=== PATIENT | female | born 1995 | race Caucasian/White ===

== ENCOUNTER → 2017-01-17 | Outpatient (CLI) | payer OTHER | END | disposition home or self-care (01) | LOC: C.LAB 02:20 | DX: Z02.83 Encounter for blood-alcohol and blood-drug test (principal) ==

== ENCOUNTER 2023-10-21 07:48 | Inpatient (IN) ==
--- OUTSIDE RECORDS SUMMARY | 2023-10-21 08:19 | External Medical Summary | Summary of Care ---
Author Name Unknown Organization [facility] Address [address] [address] Phone [phone] Care Team Providers Care Batter Mixer Helper Name Role Phone Unavailable Primary Care Provider Unavailabl e Reason for Visit * Reason Comments Outpatient Testing Encounter Details Date Type Department Care Team (Late st Contact Info) Description 10/18/2023 9:40 AM EDT Laboratory Laboratory, [facility] [address] [id number] [facility] [address] [place] [address] Arrived Allergies Active Allergy Reactions Criticality Noted Date Comments Chocolate Hives 01/03/2021 Diclofenac Hives Low 11/14/2020 Ibuprofen Hives 01/03/2021 Penicillins 10/20/2001 rash documented as of this encounter (statuses as of 10/18/2023) Medications Medication Sig Dispensed Refills Start Date End Date Status Plus 27-1 MG Oral TabletIndications:En counter for supervision of normal first in second trimester Take 1 Tablet by mouth in the morning. 100 Tablet 3 06/02/2023 Active Breast Pump Dispense double electric breast pump. Dx:Z39.1 1 Each 08/22/2023 Active documented as of this encounter (statuses as of 10/18/2023) Active Problems Problem Noted Date Diagnosed Date GBS (group B Streptococcus c stacey), +RV culture, currently 10/17/2023 Gestational HTN, third trimester 10/16/2023 Health counseling 06/27/2023 Overview: Problem Action Taken Date entered Entered by Date resolved First pNC info given Birthly info given. 06/27/2023 Tarsha Adamson RN 06/27/2023 nutrition Plans to attend [facility]IC 06/27/2023 Tarsha Adamson RN 06/27/2023 Problem Action Taken Date entered Entered by Date resolved Current needs or questions Patient denies having any current needs or questions 07/25/2023 Maria Guadalupe Patterson RN 07/25/2023 Problem Action Taken Date entered Entered by Date resolved Current needs or questions Patient denies having any current needs or questions 09/08/2023 Maria Guadalupe Patterson RN 09/08/2023 Problem Action Taken Date entered Entered by Date resolved Current needs or questions Patient denies having any current needs or questions 09/25/2023 Tarsha Adamson RN 09/25/2023 Problem Action Taken Date entered Entered by Date resolved Current needs or questions Having discomfort - comfort measures discussed. Patient denies having any current needs or questions 10/10/2023 Tarsha Adamson RN 10/10/2023 Problem Action Taken Date entered Entered by Date resolved Current needs or questions Patient denies having any current needs or questions 10/15/2023 Maria Guadalupe Patterson RN 10/15/2023 Rh negative status during 04/07/2023 Rubella non-immune status, antepartum 04/07/2023 Overview: MMR vaccination Normal , first 04/04/2023 Obesity (BMI 30-39.9) 04/04/2023 Overview: Pregravid BMI 30.46. Early glucola advised. Estimated Date of Delivery Comme nts Yes 11/10/2023 Based on last me nstrual period of 02/03/2023 (Exact Date) documented as of this encounter (statuses as of 10/18/2023) Immunizations No known immunizationsdocumented as of this encounter Social History Tobacco Use Types Packs/Day Years Used Date Smoking Tobacco: Never Smokeless Tobacco: Never Comments:No passive smoke ex posures Alcohol Use Standard Drinks/Week Comments Not Currently 0 (1 standard drink = 0.6 oz pur e alcohol) 15 drinks a weekend PHQ-2 Answer Date Recorded PHQ-2 Score 3 11/25/2019 Hunger Vital Sign Answer Date Recorded Within the past 12 months, y ou worried that your food would run out before you got the money to buy more. Never true 06/14/19 24 Within the past 12 months, t he food you bought just didn't last and you didn't have money to get more. Never true 06/14/2023 Holcomb Depression Scale Answer Date Recorded Holcomb Depression Scale Total 7 09/25/2023 The thought of harming myself has occurred to me . Never 09/25/2023 Childcare Answer Date Recorded Do you feel overwhelmed with taking care of a child, family member or friend? No 06/14/2023 Does your family need help f inding childcare? (Household - for ages 0-17 years) Not on file 06/14/2023 Clothing Answer Date Recorded Have you been unable to get clothing when it was really needed? No 06/14/2023 Is your family able to get c lothes or diapers when needed? (Household - for ages 0-17 years) Not on file 06/14/2023 Personal Safety Answer Date Recorded Do you feel unsafe or have concerns for your saf ety? No 06/14/2023 Do you have concerns for you r family's safety? (Household - for ages 0-17 years) Not on file 06/14/2023 Utilities Answer Date Recorded Do you have trouble paying y our heating, water, or electric bill? No 06/14/2023 Is your family able to pay t he heat, water, or electric bill? (Household - for ages 0-17 years) Not on file 06/14/2023 Does your family have access to good internet? (Household - for ages 0-17 years) Not on file 06/14/2023 Employment Status Answer Date Recorded Are you unemployed or without regular income? No 06/14/2023 Does the household have a re gular source of income? (Household - for ages 0-17 years) Not on file 06/14/2023 Social Connections Answer Date Recorded How often do you feel lonely or isolated from th ose around you? Never 06/14/2023 Financial Resource Strain Answer Date R ecorded Do you have any trouble payi ng for your medications, or do you think you might in the future? No 06/14/2023 Does your family have troubl e paying for medicine? (Household - for ages 0-17 years) Not on file 06/14/2023 Transportation Needs Answer Date Record ed READ ONLY Do you have troubl e getting a ride to medical visits or work? Never True 06/14/2023 Does your family have a hard time getting a ride to doctors visits? (Household - for ages 0-17 years) Not on file 06/14/2023 Has lack of transportation k ept you from medical appointments, meetings, work, or from getting things needed for daily living? Check all that apply. (Adult - for ages 18 years and over) Not on file 06/14/2023 Do you (or your family) have trouble finding or paying for a ride (transportation)? (Household - for ages 0-17 years) Not on file 06/14/2023 Housing Stability Answer Date Recorded Do you currently live in a s helter or have no steady place to sleep at night? No 06/14/2023 READ ONLY Do you think you a re at risk of becoming homeless? No 06/14/2023 Does your family worry about paying for your home or becoming homeless? (Household - for ages 0-17 years) Not on file 0 06/14/2023 Are you homeless or worried that you might be in the future? (Adult - for ages 18 years and over) Not on file Are you (or your family) kt eless or worried that you might be in the future? (Household - for ages 0-17 years) Not on file Food Insecurity Answer Date Recorded Do you need food for this week? No 06/14/2023 Are you able to get enough f ood for your family? (Household - for ages 0-17 years) Not on file 06/14/2023 Does your family need food t his week? (Household - for ages 0-17 years) Not on file 06/14/2023 Do you always have enough fo od for your family? (Household - for ages 0-17 years) Not on file 06/14/2023 Estimated Date of Delivery Comme nts Yes 11/10/2023 Based on last me nstrual period of 02/03/2023 (Exact Date) Sex and Gender Information Value Date Recorded Sex Assigned at Female 10/01/2022 4:39 PM EDT Gender Identity Female 10/01/2022 4:39 PM EDT Sexual Orientation Straight 10/01/2022 4: 39 PM EDT Job Start Date Occupation Industry Not on file Not on file Not on file documented as of this encounter Plan of Treatment Health Maintenance Due Date Last Done Comments DTaP,Tdap,and Td Vaccines (6 - Tdap) 2006 05/10/1999, 11/05/1996, 1995, Additional history exists Depression Screening 11/22/2020 11/23/2019 COVID-19 Vaccine ( season) 2022 Influenza Vaccine (FLU shot) (Season Ended) 2023 GFR 10/15/2024 10/16/2023, 09/26, 08/22/2023, Additional history exists Pap Smear 04/04/2026 04/04/2023, 11/26, 06/18/2017 Hepatitis B Completed 1995, 05/29, 1995 Gonorrhea / Chlamydia Screen Discontinued 04/04/2023 GARDASIL-HPV IMMUNIZATION SERIES Aged Out No longer eligible based on patient's age to complete this topic MENINGOCOCCAL (MENACTRA/MENVEO) Aged Out No longer eligible based on patient's age to complete this topic Pneumococcal Vaccine: Pediatrics (0 to 5 Years) and At-Risk Patients (6 to 64 Years) Aged Out No longer eligible based on patient's age to complete this topic documented as of this encounter Medical Devices Not on filedocumented as of this encounter
--- OUTSIDE RECORDS SUMMARY | 2023-10-21 08:19 | External Medical Summary ---
Author Name Unknown Address Unknown Organization [id number][place] [place] [address] [facility] [address] Laboratory Report Ordering Provider Test Date Status JANET MEZA 10/18/2023 08:56:43 Final Observation Date Value Abnormality Reference (Units ) Status Creatinine [Moles/volume] in 24 hour Urine 10/18/2023 08:56:43 58 (mg/dL) Final Urine Volume 10/18/2023 08:56:43 2100 (mL) Final Creatinine [Moles/volume] in 24 hour Urine 10/18/2023 08:56:43 1.218 0.800-1.800 (g/24 hours) Final Performing Location [facility] [place] [address] [place] [id number]
--- OUTSIDE RECORDS SUMMARY | 2023-10-21 08:19 | External Medical Summary ---
Author Name Unknown Address Unknown Organization [id number][facility] [address] [place] [id number] Laboratory Report Ordering Provider Test Date Status JANET MEZA 10/16/2023 14:57:44 Final Observation Date Value Abnormality Reference (Units ) Status Platelets 10/16/2023 14:57:44 237 140-400 (K /uL) Final Performing Location [facility] - [address] [place] [id number]
--- OUTSIDE RECORDS SUMMARY | 2023-10-21 08:19 | External Medical Summary | Summary of Care ---
Author Name Unknown Organization [facility] Address [address] [facility] [place] [address] Phone [phone] Care Team Providers Care Pit Steward Name Role Phone Unavailable Primary Care Provider Unavailabl e Reason for Visit * Reason Comments Return Visit Encounter Details Date Type Department Care Team (Late st Contact Info) Description 10/20/2023 3:15 PM EDT Office Visit Gynecology/[facility] [address] [facility] [place] [address] Hallie Vora, HANK [address] [facility] [place] [address] Supervision of high-risk , third trimester*; Obesity (BMI 30-39.9); Rh negative, antepartum; Rubella non-immune status, antepartum; Health counseling; Gestational HTN, third trimester; GBS (group B Streptococcus carrier), +RV culture, currently Allergies Active Allergy Reactions Criticality Noted Date Comments Chocolate Hives 01/03/2021 Diclofenac Hives Low 11/14/2020 Ibuprofen Hives 01/03/2021 Penicillins 10/20/2001 rash documented as of this encounter (statuses as of 10/20/2023) Medications Medication Sig Dispensed Refills Start Date End Date Status Plus 27-1 MG Oral TabletIndications:En counter for supervision of normal first in second trimester Take 1 Tablet by mouth in the morning. 100 Tablet 3 06/02/2023 Active Breast Pump Dispense double electric breast pump. Dx:Z39.1 1 Each 08/22/2023 Active documented as of this encounter (statuses as of 10/20/2023) Active Problems Problem Noted Date Diagnosed Date GBS (group B Streptococcus c arrier), +RV culture, currently 10/17/2023 Gestational HTN, third [...] as of this encounter (statuses as of 10/20/2023) Immunizations No known immunizationsdocumented as of this [...] money to get more. Never true 06/14/2023 Huron Depression Scale Answer Date Recorded Huron Depression Scale Total 7 09/25/2023 The thought [...] on file documented as of this encounter Last Filed Vital Signs Vital Sign Reading Time Taken Comments Blood Pressure 132/90 10/20/2023 2:56 PM EDT Pulse - - Temperature - - Respiratory Rate - - Oxygen Saturation - - Inhaled Oxygen Concentration - - Weight 108 kg (238 lb) 10/20/2023 2:56 PM EDT Height - - Body Mass Index 38.41 09/08/2023 9:12 AM EDT documented in this encounter Progress Notes * Hallie Vora CNM - 10/20/2023 3:16 PM EDT Kathy Berry is a 28 year old female here for her routine OB appointment at 37w0d Her Estimated Date of Delivery: 11/10/23 REVIEW OF SYSTEMS: She affirms movement. Denies vaginal bleeding, LOF, contractions, N/V Headaches for a few days, denies RUQ pain PHYSICAL EXAM: Filed Vitals: 10/20/23 1456 BP: 132/90 Weight: 108 kg (238 lb) ASSESSMENT assessment with Non-stress Test completed on 10/20/2023 at 37weeks gestation for indication ofdecreased movement heart baseline: 130 bpm Variability: Moderate Decelerations: absent Accelerations: present Contractions: Present x1 NST start time: 1515 NST stop time: 1538 NST strip reviewed, interpreted, and approved by OB provider, Laura Vora CNM. NST strip stored in clinic storage file Hallie Vora CNM 10/20/2023 3:47 PM ASSESSMENT/PLAN: 1. Obesity (BMI 30-39.9) 2. Rh negative status during Rhogam 08/22/23 3. Rubella non-immune status, antepartum Offer vaccine 4. Health counseling 5. Gestational HTN, third trimester -has induction scheduled tomorrow at [facility] - URINALYSIS, POINT OF CARE (ENTER/EDIT) 6. GBS (group B Streptococcus carrier), +RV culture, currently Antibiotics during labor 7.supervision of high-risk - URINALYSIS, POINT OF CARE (ENTER/EDIT) Supervision of - labor precautions and kick counts reviewed - keep scheduled induction tomorrow at [facility] Hallie Vora CNM documented in this encounter Nursing Notes * Magaly Crowell LPN - 10/20/2023 2:59 PM EDT 37w0d Denies vaginal bleeding/rom Has noticed some cramping Pt reporting not getting 10 kicks in 2 hrs today documented in this encounter Plan of Treatment Health Maintenance [...] Not on filedocumented as of this encounter Procedures Procedure Name Priority Date/Time Associated Diagnosis Comments URINALYSIS, POINT OF CARE (ENTER/EDIT) Routine 10/20/2023 Gestational HTN, third trimester documented in this encounter Results * URINALYSIS, POINT OF CARE (ENTER/EDIT) (10/20/2023) Color, Urine Yellow Yellow or Light Yellow Clarity, Urine Clear Clear Glucose, Urine Negative Negative mg/dL Bilirubin, Urine Negative Negative Ketone, Urine Negative Negative mg/dL Specific [place], Urine 1.015 1.003 - 1.030 Blood, Urine Negative Negative pH, Urine 6.0 5.0 - 7.5 units Protein, Urine Negative Negative mg/dL Urobilinogen, Urine 0.2 0.2 - 1.0 mg/dL Nitrite, Urine Negative Negative Esterase, Urine Negative Negative Urine 10/20/2023 Hallie Vora CNM LAB POINT OF CARE TE ST ENTER/EDIT ORDERABLES documented in this encounter Visit Diagnoses Diagnosis Supervision of high-risk , third trimester- Primary Obesity (BMI 30-39.9) Obesity, unspecified Rh negative, antepartum Rhesus isoimmunization affecting management of mother, antepartum condition Rubella non-immune status, antepartum Other specified complication, antepartum Health counseling Other specified counseling Gestational HTN, third trimester GBS (group B Streptococcus carrier), +RV culture, currently Supervision of other high-risk documented in this encounter
--- OUTSIDE RECORDS SUMMARY | 2023-10-21 08:19 | External Medical Summary | Summary of Care ---
Author Name Unknown Organization [facility] Address [address] [facility] [place] [address] Phone [phone] Care Team Providers Care Peoplesoft Hrms Developer Name Role Phone Unavailable Primary Care Provider Unavailabl e Reason for Visit * Reason Comments Return Visit Encounter Details Date Type Department Care Team (Late st Contact Info) Description 10/16/2023 2:00 PM EDT Office Visit Gynecology/Obstetric [facility] [address] [facility] [place] [address] Shelley Kendrick PA-C [address] [place] [address] Encounter for supervision of normal first in third trimester*; Obesity (BMI 30-39.9); Rh negative status during in third trimester; Rubella non-immune status, antepartum; Health counseling; Gestational HTN, third trimester Allergies Active Allergy Reactions Criticality Noted Date Comments Chocolate Hives 01/03/2021 Diclofenac Hives Low 11/14/2020 Ibuprofen Hives 01/03/2021 Penicillins 10/20/2001 rash documented as of this encounter (statuses as of 10/16/2023) Medications Medication Sig Dispensed Refills Start Date End Date Status Plus 27-1 MG Oral TabletIndications:En counter for supervision of normal first in second trimester Take 1 Tablet by mouth in the morning. 100 Tablet 3 06/02/2023 Active Breast Pump Dispense double electric breast pump. Dx:Z39.1 1 Each 08/22/2023 Active documented as of this encounter (statuses as of 10/16/2023) Active Problems Problem Noted Date Diagnosed Date Gestational HTN, third trimester 10/16/2023 Health counseling [...] as of this encounter (statuses as of 10/16/2023) Immunizations No known immunizationsdocumented as of this [...] money to get more. Never true 06/14/2023 Cobalt Depression Scale Answer Date Recorded Cobalt Depression Scale Total 7 09/25/2023 The thought [...] Sign Reading Time Taken Comments Blood Pressure 134/94 10/16/2023 1:56 PM EDT Pulse - - Temperature - - Respiratory Rate - - Oxygen Saturation - - Inhaled Oxygen Concentration - - Weight 105.5 kg (232 lb 9.6 oz) 10/16/2023 1:56 PM EDT Height - - Body Mass Index 37.54 09/08/2023 9:12 AM EDT documented in this encounter Progress Notes * Shelley Kendrick PA-C - 10/16/2023 2:16 PM EDT Kathy Berry is a 28 year old female here for her routine OB appointment at 36w3d. Her Estimated Date of Delivery: 11/10/23 REVIEW OF SYSTEMS: She affirms movement- tracking movement on flowsheet, notes over the last week she is feeling6 movements in 2 hours. Denies vaginal bleeding, LOF, contractions + , headaches for the last two weeks, now more consistent , tylenol helps maybe for one hour, denies vision changes +LE swelling feet and hands, more on left side , denies redness, pain Denies RUQ pain Had first elevated BP yesterday, PCR was 148. PEC labs last Friday all WNLs PHYSICAL EXAM: Filed Vitals: 10/16/23 1356 BP: 134/94 Weight: 105.5 kg (232 lb 9.6 oz) ASSESSMENT/PLAN: Obesity (BMI 30-39.9) Rh negative status during Rubella non-immune status, antepartum Gestational HTN, third trimester - urine dip today was negative Supervision of - Discussed labor plan: IOL at 37 weeks , scheduled [facility] at 6/25/24 call at 10 am, patient given instructions -Advised when to call: Vaginal bleeding, leaking of fluid, regular contractions every five minutes for at least an hour, decreased movement, any other questions or concerns. Reviewed [facility] - RTO Friday Shelley Kendrick PA-C documented in this encounter Nursing Notes * Magaly Crowell LPN - 10/16/2023 2:04 PM EDT Pt here today for BP f/u BP today 134/94 Urine dip neg protein documented in this encounter Plan of Treatment Scheduled Orders Name Type Priority Associated Diagnoses Orde r Schedule URINE PROTEIN, 24 HOUR Lab Routine Gestational HTN, third trimester Ordered: 10/16/2023 CREATININE, 24 HOUR URINE Lab Routine Gestational HTN, third trimester Ordered: 10/16/2023 Health Maintenance Due Date Last Done Comments [...] Procedure Name Priority Date/Time Associated Diagnosis Comments COMPREHENSIVE METABOLIC PANEL Routine 10/16/2023 2:57 PM EDT Gestational HTN, third trimester URINALYSIS, POINT OF CARE (ENTER/EDIT) Routine 10/16/2023 Encounter for supervision of normal first in third trimester documented in this encounter Results * PLT (10/16/2023 2:57 PM EDT) PLT 237 140 - 400 K/uL 10/16/2023 3:55 PM EDT [facility] [place] [facility] Blood Venous blood specimen / Unknown Venipuncture / Unknown 10/16/2023 2:57 PM EDT 10/16/2023 2:57 PM EDT Shelley Kendrick PA-C LAB BLOOD [facility] [place] [facility] [facility] [place] [address] * (ABNORMAL) COMPREHENSIVE METABOLIC PANEL (10/16/2023 2:57 PM EDT) BUN 12 6 - 20 mg/dL 10/16/2023 4:11 PM EDT [facility] [place] [facility] Creatinine 0.7 0.5 - 1.0 mg/dL 10/16/2023 4:11 PM EDT [facility] [place] [facility] Estimated Glomerular Filtration Rate >90 >=60 mL/min 10/16/2023 4:11 PM EDT [facility] [place] [facility] Comment:eGFR is calculated b ased on the CKD-EPI 2020 equation Sodium 135 135 - 146 mmol/L 10/16/2023 4:11 PM EDT [facility] [place] [facility] Potassium 4.2 3.5 - 5.1 mmol/L 10/16/2023 4:11 PM EDT [facility] [place] [facility] Chloride 101 98 - 107 mmol/L 10/16/2023 4:11 PM EDT [facility] [place] [facility] CO2 18(L) 22 - 32 mmol/L 10/16/2023 4:11 PM EDT [facility] [place] [facility] Anion Gap 16(H) 7 - 15 mmol/L 10/16/2023 4:11 PM EDT [facility] [place] [facility] Glucose 67(L) 70 - 120 mg/dL 10/16/2023 4:11 PM EDT [facility] [place] [facility] Albumin 3.7(L) 3.8 - 5.0 g/dL 10/16/2023 4:11 PM EDT [facility] [place] [facility] AST 15 10 - 35 U/L 10/16/2023 4:11 PM EDT [facility] [place] [facility] Alkaline Phosphatase 124 35 - 130 U/L 10/16/2023 4:11 PM EDT [facility] [place] [facility] Bilirubin, Total 0.2 <=1.2 mg/dL 10/16/2023 4:11 PM EDT [facility] [place] [facility] Calcium 9.6 8.4 - 10.2 mg/dL 10/16/2023 4:11 PM EDT [facility] Protein 6.6 6.0 - 8.3 g/dL 10/16/2023 4:11 PM EDT [facility] [place] [facility] ALT 13 10 - 35 U/L 10/16/2023 4:11 PM EDT [facility] [place] [facility] Blood Venous blood specimen / Unknown Venipuncture / Unknown 10/16/2023 2:57 PM EDT 10/16/2023 2:57 PM EDT Shelley Kendrick PA-C LAB BLOOD [facility] [place] [facility] [facility] [address] * URINALYSIS, POINT OF CARE (ENTER/EDIT) (10/16/2023) Color, Urine Yellow Yellow or Light Yellow Clarity, Urine Clear Clear Glucose, Urine Negative Negative mg/dL Bilirubin, Urine Negative Negative Ketone, Urine Negative Negative mg/dL Specific [place], Urine 1.020 1.003 - 1.030 Blood, Urine Negative Negative pH, Urine 7.0 5.0 - 7.5 units Protein, Urine Negative Negative mg/dL Urobilinogen, Urine 0.2 0.2 - 1.0 mg/dL Nitrite, Urine Negative Negative Esterase, Urine Negative Negative Urine 10/16/2023 Shelley Kendrick PA-C LAB POINT OF C ARE TEST ENTER/EDIT ORDERABLES documented in this encounter Visit Diagnoses Diagnosis Encounter for supervision of normal first in third trimester- Primary Supervision of normal first Obesity (BMI 30-39.9) Obesity, unspecified Rh negative status during in third trimester Rubella non-immune status, antepartum Other specified complication, antepartum Health counseling Other specified counseling Gestational HTN, third trimester documented in this encounter
--- OUTSIDE RECORDS SUMMARY | 2023-10-21 08:19 | External Medical Summary ---
Author Name Unknown Address Unknown Organization [id number]:LAB[facility] [place] - [address] [place] [address] Laboratory Report Ordering Provider Test Date Status JANET MEZA 10/18/2023 08:56:43 Final Normal: <150 mg/24 hours<br/ >High: 150-500 mg/24 hours
Very High: >500 mg/24 hours
Nephrotic: >3000 mg/24 hours Observation Date Value Abnormality Reference (Units ) Status Protein, 24-hr Urine 10/18/2023 08:56:43 10 (mg/dL) Final Urine Volume 10/18/2023 08:56:43 2100 (mL) Final Protein, 24-hr Urine 10/18/2023 08:56:43 210 Above high normal <150 (mg/24 hours) Final Performing Location LAB[facility] [place] - [address] [place] [address]
--- OUTSIDE RECORDS SUMMARY | 2023-10-21 08:20 | External Medical Summary | Summary of Care ---
Author Name Unknown Organization [facility] Address [address] [facility] [place] [address] Phone [phone] Care Team Providers Care Helpdesk Administrator Name Role Phone Unavailable Primary Care Provider Unavailabl e Reason for Visit * Reason Comments Return Visit Encounter Details Date Type Department Care Team (Late st Contact Info) Description 09/25/2023 9:00 AM EDT Office Visit Gynecology/Obstetri susan Beatty [address] [facility] [place] [address] Radha Pinzon CRNP [address] [place] [address] Nurse Rogerio [facility] Return [place] [address] [place] [address] Encounter for supervision of normal first in third trimester*; Obesity (BMI 30-39.9); Rh negative status during in third trimester; Rubella non-immune status, antepartum; Health counseling Allergies Active Allergy Reactions Criticality Noted Date Comments Chocolate Hives 01/03/2021 Diclofenac Hives Low 11/14/2020 Ibuprofen Hives 01/03/2021 Penicillins 10/20/2001 rash documented as of this encounter (statuses as of 09/25/2023) Medications Medication Sig Dispensed Refills Start Date End Date Status Plus 27-1 MG Oral TabletIndications:En counter for supervision of normal first in second trimester Take 1 Tablet by mouth in the morning. 100 Tablet 3 06/02/2023 Active Breast Pump Dispense double electric breast pump. Dx:Z39.1 1 Each 08/22/2023 Active documented as of this encounter (statuses as of 09/25/2023) Active Problems Problem Noted Date Diagnosed Date Health counseling 06/27/2023 Overview: Problem Action Taken Date entered Entered by Date resolved First pNC info given Birthly info given. 06/27/2023 Tarsha Adamson RN 06/27/2023 nutrition Plans to attend [place] 06/27/2023 Tarsha Adamson RN 06/27/2023 Problem Action [...] having any current needs or questions 09/25/2023 Tasrha Adamson RN 09/25/2023 Rh negative status during 04/07/2023 Rubella non-immune status, antepartum 04/07/2023 Overview: MMR vaccination Normal , first 04/04/2023 Obesity (BMI 30-39.9) 04/04/2023 Overview: Pregravid BMI 30.46. Early glucola advised. Estimated Date of Delivery Comme nts Yes 11/10/2023 Based on last me nstrual period of 02/03/2023 (Exact Date) documented as of this encounter (statuses as of 09/25/2023) Immunizations No known immunizationsdocumented as of this [...] money to get more. Never true 06/14/2023 [place] Depression Scale Answer Date Recorded [place] Depression Scale Total 7 09/25/2023 The thought of harming myself has occurred to me . Never 09/25/2023 Estimated Date of Delivery Comme nts Yes [...] Sign Reading Time Taken Comments Blood Pressure 114/72 09/25/2023 8:58 AM EDT Pulse - - Temperature - - Respiratory Rate - - Oxygen Saturation - - Inhaled Oxygen Concentration - - Weight 103.4 kg (228 lb) 09/25/2023 8:58 AM EDT Height - - Body Mass Index 36.8 09/08/2023 9:12 AM EDT documented in this encounter Progress Notes * Radha Pinzon CRNP - 09/25/2023 9:27 AM EDT 33w3d Baby moving well. No ctx, leaking/bleeding. Notes bilateral lower extremity edema, more at the end of the day when on her feet. Resolves with rest/elevation. No new HAs or vision changes. No redness/warmth on exam. BP normal. Recommend compression socks, elevation, increase fluid intake, decrease salt. Call if she experiences sudden facial/upper extremity swelling or signs of DVT. Completed some birthing classes online. Discussed pediatricians. Provided with labor instructions. Return in 2 weeks. 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 Feet swelling- does have compression stockings. documented in this encounter Plan of Treatment Upcoming Encounters Date Type Department Care Team (Late st Contact Info) Description 10/10/2023 11:15 AM EDT Office Visit Gynecology/Obstetrics Ravi Beatty [address] [place] [address] BackerRadha CRNP [address] [place] [address] Nurse Rogerio [facility] Return [place] [address] [place] [address] Health Maintenance Due Date Last Done Comments DTaP,Tdap,and Td Vaccines (6 - Tdap) 2006 05/10/1999, 11/05/1996, 1995, Additional history exists Depression Screening 11/22/2020 11/23/2019 COVID-19 Vaccine ( season) 2022 Influenza Vaccine (FLU shot) (Season Ended) 2023 Pap Smear 04/04/2026 04/04/2023, 11/26, 06/18/2017 Hepatitis [...] Not on filedocumented as of this encounter Visit Diagnoses Diagnosis Encounter for supervision of normal first in third trimester- Primary Supervision of normal first Obesity (BMI 30-39.9) Obesity, unspecified Rh negative status during in third trimester Rubella non-immune status, antepartum Other specified complication, antepartum Health counseling Other specified counseling documented in this encounter
--- OUTSIDE RECORDS SUMMARY | 2023-10-21 08:20 | External Medical Summary | Summary of Care ---
Author Name Unknown Organization [facility] [address] [facility] [address] Phone [phone] Care Team Providers Care [employer] Paralegal Name Role Phone Unavailable Primary Care Provider Unavailabl e Reason for Visit * Reason Comments [facility] Return Encounter Details Date Type Department Care Team (Late st Contact Info) Description 09/08/2023 9:00 AM EDT Office Visit Gynecology/Obstetri susan Beatty [address] [place] [address] Catalina Patricia PA-C [address] [place] [address] Nurse Rogerio [facility] Return [place] [address] [place] [address] Encounter for supervision of normal first in third trimester*; Obesity (BMI 30-39.9); Rh negative status during in third trimester; Rubella non-immune status, antepartum; Health counseling Allergies Active Allergy Reactions Criticality Noted Date Comments Chocolate Hives 01/03/2021 Diclofenac Hives Low 11/14/2020 Ibuprofen Hives 01/03/2021 Penicillins 10/20/2001 rash documented as of this encounter (statuses as of 09/08/2023) Medications Medication Sig Dispensed Refills Start Date End Date Status Plus 27-1 MG Oral TabletIndications:En counter for supervision of normal first in second trimester Take 1 Tablet by mouth in the morning. 100 Tablet 3 06/02/2023 Active Breast Pump Dispense double electric breast pump. Dx:Z39.1 1 Each 0 08/22/2023 Active documented as of this encounter (statuses as of 09/08/2023) Active Problems Problem Noted Date Diagnosed Date Health counseling 06/27/2023 Overview: Problem Action Taken Date entered Entered by Date resolved First pNC info given Birthly info given. 06/27/2023 Tarsha Adamson, JERRY 06/27/2023 nutrition Plans to attend [facility] 06/27/2023 [...] questions 09/08/2023 Maria Guadalupe Patterson RN 09/08/2023 Rh negative status during 04/07/2023 Rubella non-immune status, antepartum 04/07/2023 Overview: MMR vaccination Normal , first 04/04/2023 Obesity (BMI 30-39.9) 04/04/2023 Overview: Pregravid BMI 30.46. Early glucola advised. Estimated Date of Delivery Comme nts Yes 11/10/2023 Based on last me nstrual period of 02/03/2023 (Exact Date) documented as of this encounter (statuses as of 09/08/2023) Immunizations Name Administration Dates Next Due DTP/HIB (Tetramune) 11/05/1996, 6,1995, 996 DTaP Dipth/Tet/Acell Pertussis (Infanrix), Peds 05/10/1999 Hepatitis B Vaccine 1995,1995,1994 IPV - Polio Virus Vaccine (Inact) 05/10/1999 MMR - Measles/Mumps/Rubella Vaccine 05/10/1999,1 1995 OPV - Polio Virus Vaccine (Oral) 04/05/1996,07/27,1995 Varicella Vaccine (Chicken Pox) 11/05/1996 documented as of this encounter Social History Tobacco [...] money to get more. Never true 06/14/2023 [place] Depression Scale Answer Date Recorded [place] Depression Scale Total 3 04/04/2023 The thought of harming myself has occurred to me . Never 04/04/2023 Estimated Date of Delivery Comme nts Yes [...] Sign Reading Time Taken Comments Blood Pressure 98/64 09/08/2023 9:12 AM EDT Pulse - - Temperature - - Respiratory Rate - - Oxygen Saturation - - Inhaled Oxygen Concentration - - Weight 98.9 kg (218 lb) 09/08/2023 9:12 AM EDT Height 167.6 cm (5' 6") 09/08/2023 9:12 AM EDT Body Mass Index 35.19 09/08/2023 9:12 AM EDT documented in this encounter Progress Notes * Catalina Patricia PA-C - 09/08/2023 9:33 AM EDT 31w0d Counseled on TDaP, declines. Denies complaints. No VB, LOF, contractions. Pos fm. Discussed PP contraceptive. She is undecided. 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 Patient denies any questions or concerns. * Jocy Beatty LPN - 09/08/2023 9:13 AM EDT 31w0d Denies concerns documented in this encounter Plan of Treatment Upcoming Encounters Date Type Department Care Team (Late st Contact Info) Description 09/25/2023 9:00 AM EDT Office Visit Gynecology/Obstetrics Ravi Beatty [address] [place] [address] Radha Pinzon CRNP [address] [place] [address] Nurse Rogerio [facility] Return [place] [address] [place] [address] Health Maintenance Due Date Last Done Comments [...]
--- OUTSIDE RECORDS SUMMARY | 2023-10-21 08:20 | External Medical Summary | Summary of Care ---
Author Name Unknown Organization [facility] Address [address] [facility] [address] Phone [phone] Care Team Providers Care Mobile Application Developer Name Role Phone Unavailable Primary Care Provider Unavailabl e Reason for Visit * Reason Comments Return Visit Encounter Details Date Type Department Care Team (Late st Contact Info) Description 10/10/2023 11:15 AM EDT Office Visit Gynecology/Obstetri susan Beatty [address] [facility] [place] [address] Radha Pinzon CRNP [address] [place] [address] Nurse Rogerio [facility] Return [place] [address] [place] [address] Encounter for supervision of normal first in third trimester*; Obesity (BMI 30-39.9); Rh negative status during in third trimester; Rubella non-immune status, antepartum; Health counseling; Elevated blood pressure, situational Allergies Active Allergy Reactions Criticality Noted Date Comments Chocolate Hives 01/03/2021 Diclofenac Hives Low 11/14/2020 Ibuprofen Hives 01/03/2021 Penicillins 10/20/2001 rash documented as of this encounter (statuses as of 10/10/2023) Medications Medication Sig Dispensed Refills Start Date End Date Status Plus 27-1 MG Oral TabletIndications:En counter for supervision of normal first in second trimester Take 1 Tablet by mouth in the morning. 100 Tablet 3 06/02/2023 Active Breast Pump Dispense double electric breast pump. Dx:Z39.1 1 Each 08/22/2023 Active documented as of this encounter (statuses as of 10/10/2023) Active Problems Problem Noted Date Diagnosed Date [...] or questions 10/10/2023 Tarsha Adamson RN 10/10/2023 Rh negative status during 04/07/2023 Rubella non-immune status, antepartum 04/07/2023 Overview: MMR vaccination Normal , first 04/04/2023 Obesity (BMI 30-39.9) 04/04/2023 Overview: Pregravid BMI 30.46. Early glucola advised. Estimated Date of Delivery Comme nts Yes 11/10/2023 Based on last me nstrual period of 02/03/2023 (Exact Date) documented as of this encounter (statuses as of 10/10/2023) Immunizations No known immunizationsdocumented as of this [...] money to get more. Never true 06/14/2023 [place] Depression Scale Answer Date Recorded [place] Depression Scale Total 7 09/25/2023 The thought [...] Sign Reading Time Taken Comments Blood Pressure 130/84 10/10/2023 11:15 AM EDT Pulse - - Temperature - - Respiratory Rate - - Oxygen Saturation - - Inhaled Oxygen Concentration - - Weight 105.7 kg (233 lb) 10/10/2023 11:15 AM EDT Height - - Body Mass Index 37.61 09/08/2023 9:12 AM EDT documented in this encounter Progress Notes * Radha Pinzon CRNP - 10/10/2023 12:00 PM EDT 35w4d Baby moving well. Some cramping, not consistent. Denies bleeding. Increase in leaking, has to change underwear a few times a day. On exam, perineum dry. Small white physiologic discharge, no pooling w/Valsalva, neg Nitrazine. Pt reassured. Hip/tailbone pain, sitting on an exercise ball helps. Provided with local PT resources. BP slightly up; no TARANGO, vision changes, epigastric pain. Urine shows trace protein only. Will check preE labs and return Friday for BP check. Advised to call over the weekend with new symptoms, she is agreeable. Discussed GBS testing at 36 weeks. Email Developer Documentation Provider requested cage shift manager. Name of cage shift manager: BRUCE Gimenez * Tarsha Adamosn RN - 10/10/2023 11:17 AM EDT Notes more of a discharge. Watery at times. Started a week ago. documented in this encounter Nursing Notes * Tarsha Adamson RN - 10/10/2023 11:15 AM EDT Pt c/o back and hip pain. Getting worse over the past week. She denies any ctx. + cramping. Nothingcoming and going. She has tried tylenol and heat an no relief. + FM. Has pain in her hands. Tingly documented in this encounter Plan of Treatment Upcoming Encounters Date Type Department Care Team (Late st Contact Info) Description 10/13/2023 9:00 AM EDT Nurse Only Gynecology/Obstetrics [facility] [address] [place] [address] Gw, Nurse Obgyn Injection [address] [place] [address] Pending Results Name Type Priority Associated Diagnoses Date /Time COMPREHENSIVE METABOLIC PANEL Lab Routine Encounter for supervision of normal first in third trimester Elevated blood pressure, situational 10/10/2023 11:57 AM EDT CBC Lab Routine Encounter for supervision of normal first in third trimester Elevated blood pressure, situational 10/10/2023 11:57 AM EDT Scheduled Orders Name Type Priority Associated Diagnoses Orde r Schedule COMPREHENSIVE METABOLIC PANEL Lab Routine Encounter for supervision of normal first in third trimester Elevated blood pressure, situational Expected: 10/10/2023 (Approximate), Expires: 10/09/2024 CBC Lab Routine Encounter for supervision of normal first in third trimester Elevated blood pressure, situational Expected: 10/10/2023 (Approximate), Expires: 10/09/2024 Health Maintenance Due Date Last Done Comments [...] Comments URINALYSIS, POINT OF CARE (ENTER/EDIT) Routine 10/10/2023 Encounter for supervision of normal first in third trimester Elevated blood pressure, situational documented in this encounter Results * URINALYSIS, POINT OF CARE (ENTER/EDIT) (10/10/2023) Color, Urine Yellow Yellow or Light Yellow Clarity, Urine Clear Clear Glucose, Urine Negative Negative mg/dL Bilirubin, Urine Negative Negative Ketone, Urine Negative Negative mg/dL Specific [place], Urine 1.020 1.003 - 1.030 Blood, Urine Negative Negative pH, Urine 7.5 5.0 - 7.5 units Protein, Urine Trace Negative mg/dL Urobilinogen, Urine 0.2 0.2 - 1.0 mg/dL Nitrite, Urine Negative Negative Esterase, Urine Negative Negative Urine 10/10/2023 Radha BARRERA LAB POINT O F CARE TEST ENTER/EDIT ORDERABLES documented in this encounter Visit Diagnoses Diagnosis Encounter for supervision of normal first in third trimester- Primary Supervision of normal first Obesity (BMI 30-39.9) Obesity, unspecified Rh negative status during in third trimester Rubella non-immune status, antepartum Other specified complication, antepartum Health counseling Other specified counseling Elevated blood pressure, situational Elevated blood pressure reading without diagnosis of hypertension documented in this encounter
--- OUTSIDE RECORDS SUMMARY | 2023-10-21 08:20 | External Medical Summary | Summary of Care ---
Author Name Unknown Organization [facility] Address [address] [facility] [place] [address] Phone [phone] Care Team Providers Care Flower Machine Operator Name Role Phone Unavailable Primary Care Provider Unavailabl e Reason for Visit * Reason Onset Date Comments Follow Up 10/15/2023 Encounter Details Date Type Department Care Team (Late st Contact Info) Description 10/15/2023 Telephone Gynecology/Obstetrics [facility] [address] [place] [address] BackRadha garnett CRNP [address] [place] [address] Follow Up Allergies Active Allergy Reactions Criticality Noted Date Comments Chocolate Hives 01/03/2021 Diclofenac Hives Low 11/14/2020 Ibuprofen Hives 01/03/2021 Penicillins 10/20/2001 rash documented as of this encounter (statuses as of 10/15/2023) Medications Medication Sig Dispensed Refills Start Date End Date Status Plus 27-1 MG Oral TabletIndications:En counter for supervision of normal first in second trimester Take 1 Tablet by mouth in the morning. 100 Tablet 3 06/02/2023 Active Breast Pump Dispense double electric breast pump. Dx:Z39.1 1 Each 08/22/2023 Active documented as of this encounter (statuses as of 10/15/2023) Active Problems Problem Noted Date Diagnosed Date [...] as of this encounter (statuses as of 10/15/2023) Immunizations No known immunizationsdocumented as of this [...] money to get more. Never true 06/14/2023 [place] Depression Scale Answer Date Recorded [place] Depression Scale Total 7 09/25/2023 The thought [...] on file documented as of this encounter Miscellaneous Notes * Telephone Encounter - Tarsha Adamson RN - 10/15/2023 3:16 PM EDT Report addended. * Telephone Encounter - Tarsha Adamson RN - 10/15/2023 2:54 PM EDT Will work with US. * Telephone Encounter - Radha Pinzon CRNP - 10/15/2023 1:54 PM EDT Can you please follow up with radiology in regards to "ROSITA 50"? Perhaps typo? Impression states normal ROSITA. Thanks! BRUCE Bolton documented in this encounter Plan of Treatment Upcoming Encounters Date Type Department Care Team (Late st Contact Info) Description 10/16/2023 2:00 PM EDT Office Visit Gynecology/Obstetrics [facility] [address] [place] [address] Shelley Kendrick PA-C [address] [place] [address] [place] [address] 10/17/2023 11:00 AM EDT Office Visit Gynecology/Obstetrics [facility] [address] [place] [address] Kamilla Ledezma CRNP [address] [place] [address] Nurse Rogerio [facility] Return [place] [address] [place] [address] Health Maintenance Due Date Last Done Comments DTaP,Tdap,and Td Vaccines (6 - Tdap) 2006 05/10/1999, 11/05/1996, 1995, Additional history exists Depression Screening 11/22/2020 11/23/2019 COVID-19 Vaccine (2022- season) 2022 Influenza Vaccine (FLU shot) (Season [...]
--- OUTSIDE RECORDS SUMMARY | 2023-10-21 08:20 | External Medical Summary | Summary of Care ---
Author Name Unknown Organization [facility] Address [address] [facility] [address] Phone [phone] Care Team Providers Care Hog Pusher Name Role Phone Unavailable Primary Care Provider Unavailabl e Encounter Details Date Type Department Care Team (Late st Contact Info) Description 10/13/2023 9:00 AM EDT Nurse Only Gynecology/Obstetrics [facility] [address] [place] [address] Gw, Nurse Obgyn Injection [address] [place] [address] Allergies Active Allergy Reactions Criticality Noted Date Comments Chocolate Hives 01/03/2021 Diclofenac Hives Low 11/14/2020 Ibuprofen Hives 01/03/2021 Penicillins 10/20/2001 rash documented as of this encounter (statuses as of 10/13/2023) Medications Medication Sig Dispensed Refills Start Date End Date Status Plus 27-1 MG Oral TabletIndications:En counter for supervision of normal first in second trimester Take 1 Tablet by mouth in the morning. 100 Tablet 3 06/02/2023 Active Breast Pump Dispense double electric breast pump. Dx:Z39.1 1 Each 08/22/2023 Active documented as of this encounter (statuses as of 10/13/2023) Active Problems Problem Noted Date Diagnosed Date [...] as of this encounter (statuses as of 10/13/2023) Immunizations No known immunizationsdocumented as of this [...] money to get more. Never true 06/14/2023 [place] Depression Scale Answer Date Recorded [place] Depression Scale Total 7 09/25/2023 The thought [...] Sign Reading Time Taken Comments Blood Pressure 134/88 10/13/2023 9:26 AM EDT Pulse - - Temperature - - Respiratory Rate - - Oxygen Saturation - - Inhaled Oxygen Concentration - - Weight 106.6 kg (235 lb) 10/13/2023 9:11 AM EDT Height - - Body Mass Index 37.93 09/08/2023 9:12 AM EDT documented in this encounter Nursing Notes * Dagmar Hinton LPN - 10/13/2023 9:27 AM EDT Here for BP check, urine dip done. Per Rahda BARRERA come back on Friday for appt with her. Patient agreeable Pre e precautions reviewed. documented in this encounter Plan of Treatment Upcoming Encounters Date Type Department Care Team (Late st Contact Info) Description 10/15/2023 10:00 AM EDT Office Visit Gynecology/Obstetrics Ravi Beatty [address] [place] [address] Radha Pinzon CRNP [address] [place] [address] 10/17/2023 11:00 AM EDT Office Visit Gynecology/Obstetrics Ravi Beatty [address] [place] [address] Kamilla Ledezma CRNP [address] [place] [address] Nurse Rogerio [facility] Return [place] [address] [place] [address] Health Maintenance Due Date Last Done Comments [...] Comments URINALYSIS, POINT OF CARE (ENTER/EDIT) Routine 10/13/2023 Normal , first documented in this encounter Results * URINALYSIS, POINT OF CARE (ENTER/EDIT) (10/13/2023) Color, Urine Yellow Yellow or Light Yellow Clarity, Urine Clear Clear Glucose, Urine Negative Negative mg/dL Bilirubin, Urine Negative Negative Ketone, Urine Negative Negative mg/dL Specific [place], Urine 1.020 1.003 - 1.030 Blood, Urine Negative Negative pH, Urine 7.0 5.0 - 7.5 units Protein, Urine Negative Negative mg/dL Urobilinogen, Urine 0.2 0.2 - 1.0 mg/dL Nitrite, Urine Negative Negative Esterase, Urine Negative Negative Urine 10/13/2023 Radha BARRERA LAB POINT O F CARE TEST ENTER/EDIT ORDERABLES documented in this encounter Visit Diagnoses Diagnosis Normal , first- Primary Supervision of normal first Obesity (BMI 30-39.9) Obesity, unspecified Rh negative status during Rhesus isoimmunization unspecified as to episode of care in Rubella non-immune status, antepartum Other specified complication, antepartum Health counseling Other specified counseling documented in this encounter
--- OUTSIDE RECORDS SUMMARY | 2023-10-21 08:20 | External Medical Summary ---
Author Name Unknown Address Unknown Organization [id number]:[facility] [place] [address] [place] [address] Laboratory Report Ordering Provider Test Date Status KAIN RENEE 10/15/2023 10:34:42 Final Observation Date Value Abnormality Reference (Units) Status Bacteria identified in Specimen by Culture 10/15/2023 10:34:42 [id number]^BETA STREPTOCOCCUS GROUP B Abnormal Final Beta Streptococcus group B Performing Location [facility] [place] [address] [place] [id number] Ordering Provider Test Date Status KAIN RENEE 10/15/2023 10:34:42 Final Observation Date Value Abnormality Reference (Units ) Status Clindamycin 10/15/2023 10:34:42 Resistant Final Penicillin susceptibility 10/15/2023 10:34:42 <=0.06 Susceptible Final Vancomycinsusceptibility 10/15/2023 10:34:42 0.5 Susceptible Final Test: Group B Strep Suscepti bility
Specimen Source: Vaginal Rectal
Specimen Type: Swab
Specimen Date: 10/15/2023 1034
Result Date: 10/20/2023 1148
Result Status: Final result
Abnormal: Yes
Resulting Lab: [facility] [place]
[address]
[place] [address]

CULTURE

Beta Streptococcus group B (Abnormal)

SUSCEPTIBILITY

Beta Streptococcus
group B
METHOD MICROBROTH
DILUTIONS

CLINDAMYCIN -- Resistant
PENICILLIN G <=0.06 Susceptible
VANCOMYCIN 0.5 Susceptible

null Performing Location [facility] [place] - [address] [facility] [id number]
--- OUTSIDE RECORDS SUMMARY | 2023-10-21 08:20 | External Medical Summary ---
Author Name Unknown Address Unknown Organization [id number]:[facility] [address] [place] [address] Laboratory Report Ordering Provider Test Date Status JANET MEZA 10/16/2023 14:57:44 Final Observation Date Value Abnormality Reference (Units ) Status BUN 10/16/2023 14:57:44 12 6-20 (mg/dL) Final Creatinine 10/16/2023 14:57:44 0.7 0.5-1.0 (mg/dL) Final Glomerular filtration rate/1.73 sq M.predicted [Volume Rate/Area] in Serum, Plasma or Blood by Creatinine-based formula (CKD-EPI) 10/16/2023 14:57:44 >90 >=60 (mL/min) Final eGFR is calculated based on the CKD-EPI 2020 equation Sodium 10/16/2023 14:57:44 135 135-146 (m mol/L) Final Potassium 10/16/2023 14:57:44 4.2 3.5-5.1 (m mol/L) Final Cl 10/16/2023 14:57:44 101 98-107 (mm ol/L) Final CO2 10/16/2023 14:57:44 18 Below low normal 22- 32 (mmol/L) Final Anion gap 10/16/2023 14:57:44 16 Above high normal 7- 15 (mmol/L) Final Glucose 10/16/2023 14:57:44 67 Below low normal 70- 120 (mg/dL) Final Albumin 10/16/2023 14:57:44 3.7 Below low normal 3.8 -5.0 (g/dL) Final AST (Aspartate aminotransferase) 10/16/2023 14:57:44 15 10-35 (U/L) Fin al Alk Phos 10/16/2023 14:57:44 124 35-130 (U/ L) Final Bilirubin, Total 10/16/2023 14:57:44 0.2 <=1 .2 (mg/dL) Final Calcium 10/16/2023 14:57:44 9.6 8.4-10.2 ( mg/dL) Final Protein 10/16/2023 14:57:44 6.6 6.0-8.3 (g /dL) Final ALT (Alanine aminotransferase) 10/16/2023 14:57:44 13 10-35 (U/L) Esau valentino Performing Location [facility] [place] [address] - [address] [facility] [address]
--- OUTSIDE RECORDS SUMMARY | 2023-10-21 08:20 | External Medical Summary | Summary of Care ---
Author Name Unknown Organization [facility] Address [address] [facility] [address] Phone [phone] Care Team Providers Care Ammonia Solution Preparer Name Role Phone Unavailable Primary Care Provider Unavailabl e Reason for Visit * Reason Comments Return Visit Encounter Details Date Type Department Care Team (Late st Contact Info) Description 08/22/2023 10:15 AM EDT Office Visit Gynecology/Obstetri susan Beatty [address] [facility] [place] [address] Kamilla Ledezma CRNP [address] [place] [address] Nurse Rogerio [facility] Return [place] [address] [place] [address] Encounter for supervision of normal first in third trimester*; Obesity (BMI 30-39.9); Rh negative status during in third trimester; Rubella non-immune status, antepartum; Health counseling Allergies Active Allergy Reactions Criticality Noted Date Comments Chocolate Hives 01/03/2021 Diclofenac Hives Low 11/14/2020 Ibuprofen Hives 01/03/2021 Penicillins 10/20/2001 rash documented as of this encounter (statuses as of 08/22/2023) Medications Medication Sig Dispensed Refills Start Date End Date Status Plus 27-1 MG Oral TabletIndications:En counter for supervision of normal first in second trimester Take 1 Tablet by mouth in the morning. 100 Tablet 3 06/02/2023 Active Breast Pump Dispense double electric breast pump. Dx:Z39.1 1 Each 0 08/22/2023 Active Hospital, Clinic, or Other Facility Administered Medication Ordered Dose Route Frequency Start Date End Date Status Rho D Immune Globulin (Rhophylac) inj 300 mcgIndications:Rh negative status during in third trimester 300 mcg IM ONCE 08/22/2023 08/22/2023 Ended documented as of this encounter (statuses as of 08/22/2023) Active Problems Problem Noted Date Diagnosed Date Health counseling 06/27/2023 Overview: Problem Action Taken Date entered Entered by Date resolved First pNC info given Birthly info given. 06/27/2023 Tarsha Adamson, JERRY 06/27/2023 nutrition Plans to attend [place] 06/27/2023 Tarsha Adamson RN 06/27/2023 Problem Action Taken Date entered Entered by Date resolved Current needs or questions Patient denies having any current needs or questions 07/25/2023 Maria Guadalupe Patterson RN 07/25/2023 Rh negative status during 04/07/2023 Rubella non-immune status, antepartum 04/07/2023 Overview: MMR vaccination Normal , first 04/04/2023 Obesity (BMI 30-39.9) 04/04/2023 Overview: Pregravid BMI 30.46. Early glucola advised. Estimated Date of Delivery Comme nts Yes 11/10/2023 Based on last me nstrual period of 02/03/2023 (Exact Date) documented as of this encounter (statuses as of 08/22/2023) Immunizations No known immunizationsdocumented as of this [...] money to get more. Never true 06/14/2023 [place] Depression Scale Answer Date Recorded [place] Depression Scale Total 3 04/04/2023 The thought [...] Sign Reading Time Taken Comments Blood Pressure 106/70 08/22/2023 10:23 AM EDT Pulse - - Temperature - - Respiratory Rate - - Oxygen Saturation - - Inhaled Oxygen Concentration - - Weight 95.3 kg (210 lb) 08/22/2023 10:23 AM EDT Height 167.6 cm (5' 6") 08/22/2023 10:23 AM EDT Body Mass Index 33.89 08/22/2023 10:23 AM EDT documented in this encounter Progress Notes * Kamilla Ledezma CRNP - 08/22/2023 10:48 AM EDT 28w4d No concerns. Baby is active. Denies contractions, bleeding, LOF. Declines TDAP. Rhogam, Glucola today. BRUCE Romero * Rina Mendoza LPN - 08/22/2023 10:23 AM EDT 28w4d Doing glucola Needs rhogam pt was not aware of what this is. She said she was never told info about this. Would like to discuss more before inj. Declines tdap documented in this encounter Nursing Notes * Rina Mendoza LPN - 08/22/2023 11:18 AM EDT Patient here for rhogam injection. Patient doing well no complaints. Injection given IM as ordered.Patient tolerated well. Patient to follow up as directed. Patient instructed to call if any complications. Patient verbalized understanding of instructions given and her follow up appt for 2 weeks Injection site: Left Gluteus Medication Source: Dispensed stock medication * Maria Guadalupe Patterson RN - 08/22/2023 10:42 AM EDT Patient seen by [facility] [employer] Law Clerk. Patient denies any questions or concerns. Patient would like breast pump sent through [employer]. Order pended. documented in this encounter Plan of Treatment Upcoming Encounters Date Type Department Care Team (Late st Contact Info) Description 09/08/2023 9:00 AM EDT Office Visit Gynecology/Obstetrics Ravi Beatty [address] [place] [address] Catalina Patricia PA-C [address] [place] [address] Nurse Rogerio [facility] Return [place] [address] [place] [address] Health Maintenance Due Date Last Done Comments DTaP,Tdap,and Td Vaccines (6 - Tdap) 2006 05/10/1999, 11/05/1996, 1995, Additional history exists Depression Screening 11/22/2020 11/23/2019 COVID-19 Vaccine (2022-24 season) 2022 Influenza Vaccine (FLU shot) (Season [...] Other specified counseling documented in this encounter Administered Medications Inactive Administered Medications - up to 3 most recent administrations Medication Order MAR Action Action Date Dose Rate Site Rho D Immune Globulin (Rhophylac) inj 300 mcg 300 mcg, Intramuscular, ONCE, On Fri08/22/23 at 1130, For 1 dose, Do not administer until type and screen has been collected! 1 MCG = 5 INTERNATIONAL UNITS Given 08/22/2023 11:18 AM EDT 300 mcg Dorsogluteal Left documented in this encounter
--- OUTSIDE RECORDS SUMMARY | 2023-10-21 08:20 | External Medical Summary ---
Author Name Unknown Address Unknown Organization K0[facility] [address] - [address] [place] [address] Laboratory Report Ordering Provider Test Date Status THELMABACKER 10/10/2023 11:57:54 Final Observation Date Value Abnormality Reference (Units ) Status WBC, Total 10/10/2023 11:57:54 13.89 Above high normal 4 .00-10.80 (K/uL) Final RBC 10/10/2023 11:57:54 4.21 3.85-5.15 (M/uL) Final Hemoglobin 10/10/2023 11:57:54 12.2 12.0-15.3 (g/dL) Final HCT 10/10/2023 11:57:54 36.6 36.0-45.2 (%) Final MCV 10/10/2023 11:57:54 86.9 81.5-97.5 (fL) Final MCH 10/10/2023 11:57:54 29.0 27.0-34.0 (pg) Final MCHC 10/10/2023 11:57:54 33.3 32.0-36.0 (g/dL) Final RDW 10/10/2023 11:57:54 13.7 11.5-15.5 (%) Final Platelets 10/10/2023 11:57:54 233 140-400 (K /uL) Final MPV 10/10/2023 11:57:54 11.1 6.6-11.1 ( fL) Final Performing Location [facility] - [address] [place] [address]
--- OUTSIDE RECORDS SUMMARY | 2023-10-21 08:20 | External Medical Summary ---
Author Name Unknown Address Unknown Organization K0G:[facility] [address] - [address] [place] [address] Laboratory Report Ordering Provider Test Date Status KAIN RENEE 10/10/2023 11:57:54 Final Observation Date Value Abnormality Reference (Units ) Status BUN 10/10/2023 11:57:54 11 6-20 (mg/dL) Final Creatinine 10/10/2023 11:57:54 0.7 0.5-1.0 (mg/dL) Final Glomerular filtration rate/1.73 sq M.predicted [Volume Rate/Area] in Serum, Plasma or Blood by Creatinine-based formula (CKD-EPI) 10/10/2023 11:57:54 >90 >=60 (mL/min) Final eGFR is calculated based on the CKD-EPI 2020 equation Sodium 10/10/2023 11:57:54 136 135-146 (m mol/L) Final Potassium 10/10/2023 11:57:54 4.1 3.5-5.1 (m mol/L) Final Cl 10/10/2023 11:57:54 101 98-107 (mm ol/L) Final CO2 10/10/2023 11:57:54 21 Below low normal 22- 32 (mmol/L) Final Anion gap 10/10/2023 11:57:54 14 7-15 (mmol /L) Final Glucose 10/10/2023 11:57:54 96 70-120 (mg /dL) Final Albumin 10/10/2023 11:57:54 3.4 Below low normal 3.8 -5.0 (g/dL) Final AST (Aspartate aminotransferase) 10/10/2023 11:57:54 15 10-35 (U/L) Fin al Alk Phos 10/10/2023 11:57:54 112 35-130 (U/ L) Final Bilirubin, Total 10/10/2023 11:57:54 0.2 <=1 .2 (mg/dL) Final Calcium 10/10/2023 11:57:54 9.2 8.4-10.2 ( mg/dL) Final Protein 10/10/2023 11:57:54 6.0 6.0-8.3 (g /dL) Final ALT (Alanine aminotransferase) 10/10/2023 11:57:54 11 10-35 (U/L) Esau valentino Performing Location LABORATORY [place] [address] - [address] [facility] [address]
--- OUTSIDE RECORDS SUMMARY | 2023-10-21 08:20 | External Medical Summary | Summary of Care ---
Author Name Unknown Organization [facility] Address [address] [facility] [address] Phone [phone] Care Team Providers Care Cardiology Coordinator Name Role Phone Unavailable Primary Care Provider Unavailabl e Reason for Visit * Reason Comments Return Visit Encounter Details Date Type Department Care Team (Late st Contact Info) Description 08/22/2023 10:15 AM EDT Office Visit Gynecology/Obstetri susan Beatty [address] [facility] [place] [address] Kamilla Ledezma CRNP [address] [place] [address] Nurse Rogerio [facility] Return [place] [address] [place] [address] Encounter for supervision of normal first in [...] money to get more. Never true 06/14/2023 [place] Depression Scale Answer Date Recorded [place] Depression Scale Total 3 04/04/2023 The thought [...] 10:42 AM EDT Patient seen by [facility] Veterans Employment Representative. Patient denies any questions or concerns. Patient would like breast pump sent through [employer]. Order pended. documented in this encounter Plan of Treatment Upcoming Encounters Date Type Department Care Team (Late st Contact Info) Description 09/08/2023 9:00 AM EDT Office Visit Gynecology/Obstetrics Ravi Beatty [address] [place] [address] Catalina Patricia PA-C [address] [place] [address] Nurse Rogerio [facility] Return [place] [address] [place] [address] Health Maintenance Due Date Last Done Comments [...]
--- OUTSIDE RECORDS SUMMARY | 2023-10-21 08:20 | External Medical Summary | Summary of Care ---
Author Name Unknown Organization [facility] Address [address] [facility] [address] Phone [phone] Care Team Providers Care Advanced Quality Engineer Name Role Phone Unavailable Primary Care Provider Unavailabl e Reason for Visit * Reason Comments Outpatient Testing Encounter Details Date Type Department Care Team (Late st Contact Info) Description 10/10/2023 12:10 PM EDT Laboratory Laboratory, [facility] 132 [facility] [place] [id number] [facility] [address] Encounter for supervision of normal first in third trimester; Elevated blood pressure, situational Allergies Active Allergy [...] money to get more. Never true 06/14/2023 [place] Depression Scale Answer Date Recorded [place] Depression Scale Total 7 09/25/2023 The thought [...] as of this encounter Plan of Treatment Upcoming Encounters Date Type Department Care Team (Late st Contact Info) Description 10/13/2023 9:00 AM EDT Nurse Only Gynecology/Obstetrics [facility] [address] [place] [address] Gw, Nurse Obgyn Injection [address] [place] [address] Pending Results Name Type Priority Associated Diagnoses Date /Time COMPREHENSIVE METABOLIC PANEL Lab Routine Encounter for supervision of normal first in third trimester Elevated blood pressure, situational 10/10/2023 11:57 AM EDT CBC Lab Routine Encounter for supervision of normal first in third trimester Elevated blood pressure, situational 10/10/2023 11:57 AM EDT Health Maintenance Due Date Last Done Comments [...] supervision of normal first in third trimester Supervision of normal first Elevated blood pressure, situational Elevated blood pressure reading without diagnosis of hypertension documented in this encounter
--- OUTSIDE RECORDS SUMMARY | 2023-10-21 08:20 | External Medical Summary | Summary of Care ---
Author Name Unknown Organization [facility] Address [address] [facility] [address] Phone [phone] Care Team Providers Care Building Drafter Name Role Phone Unavailable Primary Care Provider Unavailabl e Reason for Visit * Reason Comments [facility] Return Encounter Details Date Type Department Care Team (Late st Contact Info) Description 10/15/2023 9:30 AM EDT Office Visit Gynecology/Obstetric s Ravi Beatty [address] [place] [address] BackerRadha CRNP [address] [place] [address] Encounter for supervision of normal first in third trimester*; Obesity (BMI 30-39.9); Rh negative status during in third trimester; Rubella non-immune status, antepartum; Health counseling; Elevated blood pressure reading Allergies Active Allergy Reactions Criticality Noted Date [...] Sign Reading Time Taken Comments Blood Pressure 132/92 10/15/2023 10:03 AM EDT Pulse - - Temperature - - Respiratory Rate - - Oxygen Saturation - - Inhaled Oxygen Concentration - - Weight 105.9 kg (233 lb 6.4 oz) 024 10:03 AM EDT Height - - Body Mass Index 37.67 09/08/2023 9:12 AM EDT documented in this encounter Progress Notes * Radha Pinzon CRNP - 10/15/2023 10:09 AM EDT 36w2d No bleeding, has noticed an increase in discharge, ?leaking. Some intermittent cramping. Baby moving well. More frequent HAs. Some vision changes with glasses vs contacts, but no spots, flashes of light, or loss of vision. No epigastric pain. BLE edema, non-pitting. Elevated BP today. Normal preE labs last Friday. Will complete NST today, return tomorrow for visit/repeat BP check. Urine to lab for P/C ratio. Discussed diagnostic criteria for GHTN/preE. Reviewed symptoms to report. Schedule growth u/s. Recommend off work, limit physical activity. Advised that if either condition is diagnosed, recommendation would be delivery at 37 weeks. On exam, neg pooling and neg Nitrazine. Small physiologic discharge. GBS today. 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 Name of epic cadence specialists: BRUCE Cannon ASSESSMENT assessment with Non-stress Test completed on 10/15/2023 at 36.2 weeks gestation for indicationof elevated BP heart baseline: 140 bpm Variability: Moderate Decelerations: absent Accelerations: present Contractions: None NST start time: 1030 NST stop time: 1052 NST strip reviewed, interpreted, and approved by OB provider, BRUCE Bolton . NST strip stored in clinic storage file * Jana Carpio MED ASSIST - 10/15/2023 10:03 AM EDT 36w2d Denies vaginal bleeding + movements + nausea/headaches worsening Cramping/tightness in back, hips and stomach x2 weeks. This week stronger Noticing discharge/small loss of fluid documented in this encounter Nursing Notes * Maria Guadalupe Patterson RN - 10/15/2023 10:55 AM EDT Patient seen by [facility] Burglar Alarm Inspector. Patient denies any questions or concerns. have you cut down with your smoking n/a have you quit n/a have you seen a oracle security consultant no have you seen a social service director no are you receiving counseling no have you received dental care during your no are you enrolled in WIC yes do you receive food stamps or poe assistance no Maria Guadalupe Patterson RN documented in this encounter Plan of Treatment Upcoming Encounters Date Type Department Care Team (Late st Contact Info) Description 10/16/2023 2:00 PM EDT Office Visit Gynecology/Obstetrics [facility] [address] [facility] [place] [address] Shelley Kendrick PA-C [address] [place] [address] [place] [address] 10/17/2023 11:00 AM EDT Office Visit Gynecology/Obstetrics [facility] [address] [place] [address] Kamilla Ledemza CRNP [address] [place] [address] Nurse Rogerio [facility] Return [place] [address] [place] [address] Pending Results Name Type Priority Associated Diagnoses Date /Time GROUP B STREP CULTURE/PCR Lab Routine Encounter for supervision of normal first in third trimester 10/15/2023 10:34 AM EDT PROTEIN/ CREATININE RATIO, URINE Lab Routine Elevated blood pressure reading 10/15/2023 10:15 AM EDT US PREG FOLLOW-UP EACH FETUS Medical Imaging Routine Encounter for supervision of normal first in third trimester Elevated blood pressure reading 10/15/2023 11:41 AM EDT Scheduled Orders Name Type Priority Associated Diagnoses Orde r Schedule GROUP B STREP CULTURE/PCR Lab Routine Encounter for supervision of normal first in third trimester Expected: 10/15/2023, Expires: 10/14/2024 US PREG FOLLOW-UP EACH FETUS Medical Imaging Routine Encounter for supervision of normal first in third trimester Elevated blood pressure reading Expected: 10/15/2023 (Approximate), Expires: 11/13/2024 Health Maintenance Due Date Last Done Comments [...] Comments URINALYSIS, POINT OF CARE (ENTER/EDIT) Routine 10/15/2023 Elevated blood pressure reading documented in this encounter Results * URINALYSIS, POINT OF CARE (ENTER/EDIT) (10/15/2023) Color, Urine Yellow Yellow or Light Yellow Clarity, Urine Clear Clear Glucose, Urine Negative Negative mg/dL Bilirubin, Urine Negative Negative Ketone, Urine Negative Negative mg/dL Specific Dexter, Urine 1.020 1.003 - 1.030 Blood, Urine Negative Negative pH, Urine 7.0 5.0 - 7.5 units Protein, Urine Trace Negative mg/dL Urobilinogen, Urine 0.2 0.2 - 1.0 mg/dL Nitrite, Urine Negative Negative Esterase, Urine Negative Negative Urine 10/15/2023 Radha [facility] LAB POINT O F CARE TEST ENTER/EDIT ORDERABLES documented in this encounter Visit Diagnoses Diagnosis Encounter for supervision of normal first in third trimester- Primary Supervision of normal first Obesity (BMI 30-39.9) Obesity, unspecified Rh negative status during in third trimester Rubella non-immune status, antepartum Other specified complication, antepartum Health counseling Other specified counseling Elevated blood pressure reading Elevated blood pressure reading without diagnosis of hypertension documented in this encounter
--- OUTSIDE RECORDS SUMMARY | 2023-10-21 08:20 | External Medical Summary | Summary of Care ---
Author Name Unknown Organization [facility] Address [address] [facility] [place] [address] Phone [phone] Care Team Providers Care Fruit I Farmworker Name Role Phone Unavailable Primary Care Provider Unavailabl e Encounter Details Date Type Department Care Team (Late st Contact Info) Description 08/25/2023 Population Health External Data Unspecified Department Allergies Active Allergy Reactions Criticality Noted Date Comments Chocolate Hives 01/03/2021 Diclofenac Hives Low 11/14/2020 Ibuprofen Hives 01/03/2021 Penicillins 10/20/2001 rash documented as of this encounter (statuses as of 08/25/2023) Medications Medication Sig Dispensed Refills Start Date End Date Status Plus 27-1 MG Oral TabletIndications:En counter for supervision of normal first in second trimester Take 1 Tablet by mouth in the morning. 100 Tablet 3 06/02/2023 Active Breast Pump Dispense double electric breast pump. Dx:Z39.1 1 Each 0 08/22/2023 Active documented as of this encounter (statuses as of 08/25/2023) Active Problems Problem Noted Date Diagnosed Date [...] as of this encounter (statuses as of 08/25/2023) Immunizations No known immunizationsdocumented as of this [...] money to get more. Never true 06/14/2023 [place] Depression Scale Answer Date Recorded [place] Depression Scale Total 3 04/04/2023 The thought [...] Ravi Beatty [address] [place] [address] Catalina Patricia PA-C [address] [place] [address] Nurse Rogerio [facility] Return [place] [address] [place] [address] Health Maintenance Due Date Last Done Comments [...]
--- OUTSIDE RECORDS SUMMARY | 2023-10-21 08:20 | External Medical Summary ---
Author Name Unknown Address Unknown Organization K01:[facility] [place] [facility] [address] [place] [address] Laboratory Report Ordering Provider Test Date Status KAIN RENEE 10/15/2023 10:34:42 Final Observation Date Value Abnormality Reference (Units ) Status Streptococcus agalactiae DNA [Presence] in Specimen by LEEANNA with probe detection 10/15/2023 10:34:42 Positive Abnormal Negative Final Group B Streptococcus detect ed by culture-enhanced PCR (amplified probe). GBS GBSCT - [facility] 10/15/2023 10:34:42 16.5 Final GBS SPCCT - [facility] 10/15/2023 10:34:42 0.0 Final Performing Location [facility] [place] - [address] [place] [address]
--- OUTSIDE RECORDS SUMMARY | 2023-10-21 08:20 | External Medical Summary | Summary of Care ---
Author Name Unknown Organization [facility] Address [address] [facility] [address] Phone [phone] Care Team Providers Care Regional Account Director Name Role Phone Unavailable Primary Care Provider Unavailabl e Reason for Visit * Reason Comments [facility] Return Encounter Details Date Type Department Care Team (Late st Contact Info) Description 09/08/2023 9:00 AM EDT Office Visit Gynecology/Obstetri susan Beatty [address] [place] [address] Catalina Patricia PA-C [address] [place] [address] Nurse Rogerio [facility] Return [place] [address] [place] [address] Encounter for supervision of normal first in [...] given Birthly info given. 06/27/2023 Tarsha Adamson, RN 06/27/2023 nutrition Plans to attend [facility] [...] this encounter (statuses as of 09/08/2023) Immunizations No known immunizationsdocumented as of this [...] money to get more. Never true 06/14/2023 [place] Depression Scale Answer Date Recorded [place] Depression Scale Total 3 04/04/2023 The thought [...] documented in this encounter Nursing Notes * Jocy Beatty LPN - 09/08/2023 9:13 AM EDT 31w0d Denies concerns documented in this encounter Plan of Treatment Upcoming Encounters Date Type Department Care Team (Late st Contact Info) Description 09/25/2023 9:00 AM EDT Office Visit Gynecology/Obstetrics [facility] [address] [place] [address] Backer, BRUCE Bailey [address] [place] [address] Nurse Rogerio [facility] Return [place] [address] [place] [address] Health Maintenance Due Date Last Done Comments [...]
--- OUTSIDE RECORDS SUMMARY | 2023-10-21 08:20 | External Medical Summary ---
Author Name Unknown Address Unknown Organization [id number]:LAB[place]ORY [facility] [place] [address] [place] [address] Laboratory Report Ordering Provider Test Date Status KAIN RENEE 10/15/2023 10:15:26 Final Normal: <150 mg/ g creatinine
High: 150-500 mg/g creatinine
Very High: >500 mg/g creatinine
Nephrotic: >3000 mg/g creatinine Observation Date Value Abnormality Reference (Units ) Status Protein/Creatinine [Ratio] in Urine 10/15/2023 10:15:26 148 <150 (mg/g ) Final Protein, Urine 10/15/2023 10:15:26 13 (mg/dL) Final Creatinine, Urine 10/15/2023 10:15:26 88 (mg/dL) Final Performing Location LABORATORY [facility] [place] [address] [place] [address]
--- OUTSIDE RECORDS SUMMARY | 2023-10-21 08:20 | External Medical Summary | Summary of Care ---
Author Name Unknown Organization [facility] Address [address] [facility] [address] Phone [phone] Care Team Providers Care Network Manager Name Role Phone Unavailable Primary Care Provider Unavailabl e Reason for Visit * Reason Comments Outpatient Testing Encounter Details Date Type Department Care Team (Late st Contact Info) Description 08/22/2023 10:00 AM EDT Laboratory [facility], [facility] [address] [facility] [id number] [facility] [address] [facility] [address] Encounter for supervision of normal first in second trimester Allergies Active Allergy Reactions Criticality Noted Date Comments Chocolate Hives 01/03/2021 Diclofenac Hives Low 11/14/2020 Ibuprofen Hives 01/03/2021 Penicillins 10/20/2001 rash documented as of this encounter (statuses as of 08/22/2023) Medications Medication Sig Dispensed Refills Start Date End Date Status Plus 27-1 MG Oral TabletIndications:Enc ounter for supervision of normal first in second trimester Take 1 Tablet by mouth in the morning. 100 Tablet 3 06/02/2023 Active Hospital, Clinic, or Other Facility Administered [...] money to get more. Never true 06/14/2023 [place] Depression Scale Answer Date Recorded [place] Depression Scale Total 3 04/04/2023 The thought [...] Ravi Beatty [address] [place] [address] Catalina Patricia PA-C [address] [place] [address] Nurse Rogerio [facility] Return [place] [address] [place] [address] Pending Results Name Type Priority Associated Diagnoses Date /Time 50-G GESTATIONAL GLUCOSE, 1 HOUR Lab Routine Encounter for supervision of normal first in second trimester 08/22/2023 11:02 AM EDT SYPHILIS ANTIBODY SCREEN WITH REFLEX TO RPR Lab Routine Encounter for supervision of normal first in second trimester 08/22/2023 11:02 AM EDT CBC WITH WBC DIFFERENTIAL AND ANEMIA REFLEX WORKUP Lab Routine Encounter for supervision of normal first in second trimester 08/22/2023 11:02 AM EDT TYPE AND SCREEN Lab Routine Encounter for supervision of normal first in second trimester 08/22/2023 11:02 AM EDT SYPHILIS ANTIBODY SCREEN Lab Routine Encounter for supervision of normal first in second trimester 08/22/2023 11:02 AM EDT ANEMIA CBC Lab Routine Encounter for supervision of normal first in second trimester 08/22/2023 11:02 AM EDT DIFFERENTIAL, AUTOMATED Lab Routine Encounter for supervision of normal first in second trimester 08/22/2023 11:02 AM EDT ANEMIA REFLEX CHEMISTRY HOLD Lab Routine Encounter for supervision of normal first in second trimester 08/22/2023 11:02 AM EDT Health Maintenance Due Date Last [...] Encounter for supervision of normal first in second trimester Supervision of normal first documented in this encounter
--- OUTSIDE RECORDS SUMMARY | 2023-10-21 08:21 | External Medical Summary ---
Author Name Unknown Address Unknown Organization [id number]:[place] [facility] [place] [facility] [address] [place] [address] Laboratory Report Ordering Provider Test Date Status NATALIYA KEANE 08/22/2023 11:02:38 Final Observation Date Value Abnormality Reference (Units ) Status Creatinine 08/22/2023 11:02:38 0.6 0.5-1.0 (mg/dL) Final Glomerular filtration rate/1.73 sq M.predicted [Volume Rate/Area] in Serum, Plasma or Blood by Creatinine-based formula (CKD-EPI) 08/22/2023 11:02:38 >90 >=60 (mL/min) Final eGFR is calculated based on the CKD-EPI 2020 equation Performing Location [place] [facility] [place] [facility] [address] [place] [address]
--- OUTSIDE RECORDS SUMMARY | 2023-10-21 08:21 | External Medical Summary | Summary of Care ---
Author Name Unknown Organization [facility] Address [address] [facility] [address] Phone [phone] Care Team Providers Care Excellence Coach Name Role Phone Unavailable Primary Care Provider Unavailabl e Reason for Visit * Reason Comments Return Visit Encounter Details Date Type Department Care Team (Late st Contact Info) Description 05/30/2023 9:00 AM EST Office Visit Gynecology/Obstetric s [facility] [address] [place] [address] Catalina Patricia PA-C [address] [place] [address] Encounter for supervision of normal first in second trimester*; Obesity (BMI 30-39.9); Rh negative status during in second trimester; Rubella non-immune status, antepartum Allergies Active Allergy Reactions Criticality Noted Date Comments Chocolate Hives 01/03/2021 Diclofenac Hives Low 11/14/2020 Ibuprofen Hives 01/03/2021 Penicillins 10/20/2001 rash documented as of this encounter (statuses as of 05/30/2023) Medications Medication Sig Dispensed Refills Start Date End Date Status 28-0.8 MG Oral Tablet Take by mouth. 0 Active documented as of this encounter (statuses as of 05/30/2023) Active Problems Problem Noted Date Diagnosed Date Rh negative status during 04/07/2023 Rubella non-immune status, antepartum 04/07/2023 Overview: MMR vaccination Normal , first 04/04/2023 Obesity (BMI 30-39.9) 04/04/2023 Overview: Pregravid BMI 30.46. Early glucola advised. Estimated Date of Delivery Comme nts Yes 11/10/2023 Based on last me nstrual period of 02/03/2023 (Exact Date) documented as of this encounter (statuses as of 05/30/2023) Immunizations Name Administration Dates Next Due DTP/HIB [...] Date Smoking Tobacco: Never Smokeless Tobacco: Never Tobacco Cessation:Counseling Given: Not Answered Comments:No passive smoke exposures Alcohol Use Standard Drinks/Week Comments Not Currently 0 (1 standard drink = 0.6 oz pur e alcohol) 15 drinks a weekend PHQ-2 Answer Date Recorded PHQ-2 Score 3 11/25/2019 Hunger Vital Sign Answer Date Recorded Within the past 12 months, y ou worried that your food would run out before you got the money to buy more. Never true 03/21/20 23 Within the past 12 months, t he food you bought just didn't last and you didn't have money to get more. Never true 03/21/2023 [place] Depression Scale Answer Date Recorded [place] Depression Scale Total 3 04/04/2023 The thought [...] Sign Reading Time Taken Comments Blood Pressure 104/60 05/30/2023 8:52 AM EST Pulse - - Temperature - - Respiratory Rate - - Oxygen Saturation - - Inhaled Oxygen Concentration - - Weight 86.3 kg (190 lb 3.2 oz) 05/30/2023 8:52 A M EST Height 167.6 cm (5' 6") 05/30/2023 8:52 AM EST Body Mass Index 30.7 05/30/2023 8:52 AM EST documented in this encounter Progress Notes * Catalina Patricia PA-C - 05/30/2023 8:59 AM EST 16w4d Had Colpo this week, having some cramping since. Has not tried tylenol. Denies bleeding, LOF. Fluidintake good. Denies dysuria. Will collect urine culture. Reviewed comfort measures. Declines genetics. Anatomy with next visit. Struggling with sleep still, reviewed Unisom and other measures. She is trying to avoid medicationsin . RTC in 4 weeks Catalina Patricia PA-C documented in this encounter Nursing Notes * Maria Guadalupe Patterson RN - 05/30/2023 8:53 AM EST Patient here for LES 16w4d Having cramping after colposcopy 05/27 Denies bleeding Pended anatomy Maria Guadalupe Patterson RN documented in this encounter Miscellaneous Notes * Addendum Note - Magaly Ruiz LPN - 05/30/2023 9:30 AM ESTAddended by: MAGALY RUIZ on: 05/30/2023 09:30 AM Modules accepted: Orders documented in this encounter Plan of Treatment Upcoming Encounters Date Type Department Care Team (Late st Contact Info) Description 06/27/2023 9:45 AM EST Imaging [facility] [address] [place] [address] 06/27/2023 11:30 AM EST Office Visit Gynecology/Obstetrics [facility] [address] [place] [address] Radha Pinzon CRNP [address] [place] [address] Nurse Rogerio [facility] Return [facility] [address] [place] [address] Pending Results Name Type Priority Associated Diagnoses Date /Time CULTURE, URINE, QUANTITATIVE Lab Routine Encounter for supervision of normal first in second trimester 05/30/2023 9:30 AM EST Scheduled Orders Name Type Priority Associated Diagnoses Orde r Schedule US PREG SINGLE/1ST GEST, 14 WEEKS OR LATER Medical Imaging Routine Encounter for supervision of normal first in second trimester Expected: 06/21/2023, Expires: 06/27/2024 Health Maintenance Due Date Last Done Comments COVID-19 Vaccine (#1) 1995 DTaP,Tdap,and Td Vaccines (6 - Tdap) 2006 05/10/1999, 11/05/1996, 1995, Additional history exists Depression Screening 11/22/2020 11/23/2019 Influenza Vaccine (FLU shot) (#1) 2022 Pap Smear 04/04/2026 04/04/2023, 11/26, 06/18/2017 Hepatitis [...] for supervision of normal first in second trimester- Primary Supervision of normal first Obesity (BMI 30-39.9) Obesity, unspecified Rh negative status during in second trimester Rubella non-immune status, antepartum Other specified complication, antepartum documented in this encounter
--- OUTSIDE RECORDS SUMMARY | 2023-10-21 08:21 | External Medical Summary ---
Author Name Unknown Address Unknown Organization K01:[place] [facility] [place] [facility] [place] [place] [place] [address] Laboratory Report Ordering Provider Test Date Status NATALIYA KEANE 08/22/2023 11:02:38 Final Observation Date Value Abnormality Reference (Units ) Status Retic, % (auto) 08/22/2023 11:02:38 1.81 0.80-1.90 (%) Final Reticulocytes, Absolute 08/22/2023 11:02:38 75.5 31.3-100.1 (K/uL) Final Reticulocyte fraction, immature 08/22/2023 11:02:38 14.7 2.5-20.6 (%) Final Reticulocyte HGB 08/22/2023 11:02:38 32.8 29.7-37.4 (pg) Final Performing Location LABORATORY [facility] [place] [address] [place] [address]
--- OUTSIDE RECORDS SUMMARY | 2023-10-21 08:21 | External Medical Summary ---
Author Name Unknown Address Unknown Organization [id number]:LABORATORY [facility] [place] [facility] - [address] [place] [address] Laboratory Report Ordering Provider Test Date Status DIYANATALIYA 08/22/2023 11:02:38 Final Observation Date Value Abnormality Reference (Units ) Status Glucose [Moles/volume] in Serum or Plasma --1 hour post 50 g glucose PO 08/22/2023 11:02:38 103 70-129 (mg/dL) Final Performing Location LABORATORY [facility] [place] [facility] - [address] [place] [address]
--- OUTSIDE RECORDS SUMMARY | 2023-10-21 08:21 | External Medical Summary ---
Author Name Unknown Address Unknown Organization [id number]:[place]ATORY [facility] [place] [address] [place] [address] Laboratory Report Ordering Provider Test Date Status NATALIYA KEANE 08/22/2023 11:02:38 Final Observation Date Value Abnormality Reference (Units ) Status Ferritin 08/22/2023 11:02:38 29 13-150 (ng /mL) Final Performing Location LABORATORY [facility] - [address] [place] [address]
--- OUTSIDE RECORDS SUMMARY | 2023-10-21 08:21 | External Medical Summary ---
Author Name Unknown Address Unknown Organization K01:LABORATORY [place] [address] [address] [place] [address] Laboratory Report Ordering Provider Test Date Status BOY KEANELEONARDA 08/22/2023 11:02:38 Final Observation Date Value Abnormality Reference (Units ) Status WBC, Total 08/22/2023 11:02:38 10.71 4.00-10.8 0 (K/uL) Final RBC 08/22/2023 11:02:38 4.06 3.85-5.15 (M/uL) Final Hemoglobin 08/22/2023 11:02:38 11.7 Below low normal 12 .0-15.3 (g/dL) Final Anemia reflex testing trigge rs on a HGB < 12.0 for Females and HGB < 13.0 for Males in accordance with the WHO Anemia Guidelines
Anemia reflex testing triggers on a HGB < 12.0 for Females and HGB < 13.0 for Males in accordance with the WHO Anemia Guidelines HCT 08/22/2023 11:02:38 35.8 Below low normal 36. 0-45.2 (%) Final MCV 08/22/2023 11:02:38 88.2 81.5-97.5 (fL) Final MCH 08/22/2023 11:02:38 28.8 27.0-34.0 (pg) Final MCHC 08/22/2023 11:02:38 32.7 32.0-36.0 (g/dL) Final RDW 08/22/2023 11:02:38 13.1 11.5-15.5 (%) Final Platelets 08/22/2023 11:02:38 267 140-400 (K /uL) Final MPV 08/22/2023 11:02:38 10.5 6.6-11.1 ( fL) Final Nucleated erythrocytes/100 leukocytes [Ratio] in Blood by Automated count 08/22/2023 11:02:38 0 <=0 (/100 WBCs) Final Performing Location LABORATORY [facility] [place] - [address] [facility] [address]
--- OUTSIDE RECORDS SUMMARY | 2023-10-21 08:21 | External Medical Summary | Summary of Care ---
Author Name Unknown Organization [facility] Address [address] [facility] [address] Phone [phone] Care Team Providers Care Monotyper Name Role Phone Unavailable Primary Care Provider Unavailabl e Reason for Visit * Reason Comments Return Visit Encounter Details Date Type Department Care Team (Late st Contact Info) Description 06/27/2023 11:30 AM EST Office Visit Gynecology/Obstetri susan Beatty [address] [facility] [place] [address] Radha Pinzon CRNP [address] [place] [address] Nurse Rogerio [facility] Return [place] [address] [place] [address] Encounter for supervision of normal first in second trimester*; Obesity (BMI 30-39.9); Rh negative status during in second trimester; Rubella non-immune status, antepartum Allergies Active Allergy Reactions Criticality Noted Date Comments Chocolate Hives 01/03/2021 Diclofenac Hives Low 11/14/2020 Ibuprofen Hives 01/03/2021 Penicillins 10/20/2001 rash documented as of this encounter (statuses as of 06/27/2023) Medications Medication Sig Dispensed Refills Start Date End Date Status Plus 27-1 MG Oral TabletIndications:Enc ounter for supervision of normal first in second trimester Take 1 Tablet by mouth in the morning. 100 Tablet 3 06/02/2023 Active documented as of this encounter (statuses as of 06/27/2023) Active Problems Problem Noted Date Diagnosed Date Health counseling 06/27/2023 Overview: Problem Action Taken Date entered Entered by Date resolved First pNC info given Birthly info given. 06/27/2023 Tarsha Adamson RN 06/27/2023 nutrition Plans to attend [place] 06/27/2023 Tarsha Adamson RN 06/27/2023 Rh negative status during 04/07/2023 Rubella non-immune status, antepartum 04/07/2023 Overview: MMR vaccination Normal , first 04/04/2023 Obesity (BMI 30-39.9) 04/04/2023 Overview: Pregravid BMI 30.46. Early glucola advised. Estimated Date of Delivery Comme nts Yes 11/10/2023 Based on last me nstrual period of 02/03/2023 (Exact Date) documented as of this encounter (statuses as of 06/27/2023) Immunizations No known immunizationsdocumented as of this [...] money to get more. Never true 06/14/2023 Hun[place] Depression Scale Answer Date Recorded Hun[place] Depression Scale Total 3 04/04/2023 The thought [...] Sign Reading Time Taken Comments Blood Pressure 98/60 06/27/2023 10:47 AM EST Pulse - - Temperature - - Respiratory Rate - - Oxygen Saturation - - Inhaled Oxygen Concentration - - Weight 88.5 kg (195 lb 3.2 oz) 06/27/2023 10:47 AM EST Height - - Body Mass Index 31.51 05/30/2023 8:52 AM EST documented in this encounter Progress Notes * Radha Pinzon CRNP - 06/27/2023 11:35 AM EST 20w4d Normal anatomy scan today; planning gender reveal in July. No cramping, bleeding. Feeling movement. Declines quad screen. 4 week return. BRUCE Bolton documented in this encounter Nursing Notes * Tarsha Adamson RN - 06/27/2023 11:23 AM EST have you cut down with your smoking no have you quit no have you seen a skin care consultant no have you seen a rn social work no are you receiving counselingno have you received dental care during your no are you enrolled in [facility] plans to do you receive food stamps or poe assistance no are you having problems with depression, receiving counseling or taking prescribed medications denies have you had little interest in doing things, or have you been bothered by feeling down, depressed,or hopeless denies documented in this encounter Plan of Treatment Upcoming Encounters Date Type Department Care Team (Late st Contact Info) Description 07/25/2023 8:30 AM EDT Office Visit Gynecology/Obstetrics [facility] [address] [place] [address] Kamilla Ledezma CRNP [address] [place] [address] Nurse Rogerio [facility] Return [place] [address] [place] [address] Health Maintenance Due Date Last Done Comments DTaP,Tdap,and Td Vaccines (6 - Tdap) 2006 05/10/1999, 11/05/1996, 1995, Additional history exists Depression Screening 11/22/2020 11/23/2019 COVID-19 Vaccine (2022-24 season) 2022 Influenza Vaccine (FLU shot) (#1) 2022 Pap [...]
--- OUTSIDE RECORDS SUMMARY | 2023-10-21 08:21 | External Medical Summary ---
Author Name Unknown Address Unknown Organization K01:LABORATORY [facility] [place] - [address] [facility] [address] Laboratory Report Ordering Provider Test Date Status DIYANATALIYA 08/22/2023 11:02:38 Final Observation Date Value Abnormality Reference (Units ) Status SYNC LEUKOCYTES IN BLOOD BY AUTOMATED COUNT 08/22/2023 11:02:38 10.71 4.00-10.80 (K/uL) Final Segs 08/22/2023 11:02:38 70.5 40.0-75.0 (%) Final Lymphs % 08/22/2023 11:02:38 21.8 18.0-42.0 (%) Final Monos 08/22/2023 11:02:38 5.4 1.0-11.0 (%) Final Eosinophils 08/22/2023 11:02:38 0.7 0.0-6.0 (%) Final Basos 08/22/2023 11:02:38 0.4 0.0-2.0 (%) Final Immature Granulocyte, Percent 08/22/2023 11:02:38 1.2 0.0-2.0 (%) Final Absolute Segs 08/22/2023 11:02:38 7.56 1.80-7.70 (K/uL) Final Lymphs, absolute 08/22/2023 11:02:38 2.33 1.00-4.80 (K/ul) Final Monos, Abs 08/22/2023 11:02:38 0.58 0.00-1.10 (K/uL) Final Eos, Abs 08/22/2023 11:02:38 0.07 0.00-0.70 (K/uL) Final Basos, Abs 08/22/2023 11:02:38 0.04 0.00-0.20 (K/uL) Final Immature Granulocytes, Number 08/22/2023 11:02:38 0.13 0.00-0.20 (K/uL) Final Performing Location LABORATORY [facility] [place] - [address] [facility] [address]
--- OUTSIDE RECORDS SUMMARY | 2023-10-21 08:21 | External Medical Summary | Summary of Care ---
Author Name Unknown Organization [facility] Address [address] [facility] [address] Phone [phone] Care Team Providers Care Hydrogen Treater Name Role Phone Unavailable Primary Care Provider Unavailabl e Reason for Visit * Reason Comments Return Visit Encounter Details Date Type Department Care Team (Late st Contact Info) Description 05/30/2023 9:00 AM EST Office Visit Gynecology/Obstetric s [facility] [address] [place] [address] Catalina Patricia PA-C [address] [place] [address] Encounter for supervision of normal first in [...] this encounter (statuses as of 05/30/2023) Immunizations No known immunizationsdocumented as of this [...] money to get more. Never true 03/21/2023 [place] Depression Scale Answer Date Recorded [place] Depression Scale Total 3 04/04/2023 The thought [...] Description 06/27/2023 9:45 AM EST Imaging Radiology [facility] [address] [place] [address] 06/27/2023 11:30 AM EST Office Visit Gynecology/Obstetrics [facility]avi [facility] [address] [place] [address] Backer, BRUCE Bailey [address] [place] [address] Nurse Rogerio [facility] Return [place] [address] [place] [address] Scheduled Orders Name Type Priority Associated Diagnoses [...]
--- OUTSIDE RECORDS SUMMARY | 2023-10-21 08:21 | External Medical Summary ---
Author Name Unknown Address Unknown Organization K01:LABORATORY [facility] [place] [facility] [place] [address] [place] [address] Laboratory Report Ordering Provider Test Date Status NATALIYA KEANE 08/22/2023 11:02:38 Final Observation Date Value Abnormality Reference (Units ) Status ABO 08/22/2023 11:02:38 O Final RH 08/22/2023 11:02:38 Negative Final RED BLOOD CELL ANTIBODY SCREEN 08/22/2023 11:02:38 Negative Final SPECIMEN EXPIRATION DATE 08/22/2023 11:02:38 08/25/2023 23:59 Final Performing Location LAB[facility]ATORY [facility] [place] [facility] - [address] [place] [address]
--- OUTSIDE RECORDS SUMMARY | 2023-10-21 08:21 | External Medical Summary ---
Author Name Unknown Address Unknown Organization [id number]:LABORATORY [facility] [place] [address] [place] [address] Laboratory Report Ordering Provider Test Date Status NATALIYA KEANE 08/22/2023 11:02:38 Final Observation Date Value Abnormality Reference (Units ) Status Treponema pallidum Ab [Presence] in Serum by Immunoassay 08/22/2023 11:02:38 Nonreactive Nonreactive Final No serologic evidence of syp hilis. No additional testing clinicially indicated at this time. Consider repeat testing in 2-4 weeks if acute or primary syphilis is suspected. Performing Location LABORATORY [facility] [place] [address] [place] [address]
--- OUTSIDE RECORDS SUMMARY | 2023-10-21 08:21 | External Medical Summary | Summary of Care ---
Author Name Unknown Organization [facility] Address [address] [facility] [address] Phone [phone] Care Team Providers Care Used Car Manager Name Role Phone Unavailable Primary Care Provider Unavailabl e Reason for Visit * Reason Comments Return Visit Encounter Details Date Type Department Care Team (Late st Contact Info) Description 05/30/2023 9:00 AM EST Office Visit Gynecology/Obstetric s [facility] [address] [place] [address] Catalina Patricia PA-C [address] [place] [address] Encounter for supervision of normal first in [...] money to get more. Never true 03/21/2023 [place] Depression Scale Answer Date Recorded [place] Depression Scale Total 3 04/04/2023 The thought [...] 06/27/2023 9:45 AM EST Imaging [facility] [address] [place] [address] 06/27/2023 11:30 AM EST Office Visit Gynecology/Obstetrics [facility] [address] [place] [address] Radha Pinzon CRNP [address] [place] [address] Nurse Rogerio [facility] Return [facility] [address] [place] [address] Pending Results Name Type Priority Associated Diagnoses [...]
--- OUTSIDE RECORDS SUMMARY | 2023-10-21 08:21 | External Medical Summary | Summary of Care ---
Author Name Unknown Organization [facility] Address [address] [place] [facility] [place] [address] Phone [phone] Care Team Providers Care Latent Fingerprint Examiner Name Role Phone Unavailable Primary Care Provider Unavailabl e Reason for Visit * Reason Comments Outpatient Testing Encounter Details Date Type Department Care Team (Late st Contact Info) Description 05/02/2023 9:30 AM EST Laboratory Laboratory, [facility] [address] [facility] [place] [id number] [facility] 132 [facility] [place] [address] Encounter for supervision of normal first in first trimester; Obesity (BMI 30-39.9) Allergies Active Allergy Reactions Criticality Noted Date Comments Chocolate Hives 01/03/2021 Diclofenac Hives Low 11/14/2020 Ibuprofen Hives 01/03/2021 Penicillins 10/20/2001 rash documented as of this encounter (statuses as of 05/02/2023) Medications Medication Sig Dispensed Refills Start Date End Date Status 28-0.8 MG Oral Tablet Take by mouth. 0 Active documented as of this encounter (statuses as of 05/02/2023) Active Problems Problem Noted Date Diagnosed Date Rh negative status during in first tri mester 04/07/2023 Rubella non-immune status, antepartum 04/07/2023 Overview: MMR vaccination Encounter for supervision of normal first in first trimester 04/04/2023 Obesity (BMI 30-39.9) 04/04/2023 Overview: Pregravid BMI 30.46. Early glucola advised. Estimated Date of Delivery Comme nts Yes 11/10/2023 Based on last me nstrual period of 02/03/2023 (Exact Date) documented as of this encounter (statuses as of 05/02/2023) Immunizations No known immunizationsdocumented as of this [...] money to get more. Never true 03/21/2023 [place] Depression Scale Answer Date Recorded [place] Depression Scale Total 3 04/04/2023 The thought [...] Care Team (Late st Contact Info) Description 05/27/2023 9:00 AM EST [facility] [address] [place] [address] Radha Pinzon CRNP [address] [place] [address] 05/30/2023 9:00 AM EST Office Visit Gynecology/Obstetrics Ravi Beatty [address] [place] [address] Catalina Patricia PA-C [address] [place] [address] Pending Results Name Type Priority Associated Diagnoses Date /Time 50-G GESTATIONAL GLUCOSE, 1 HOUR Lab Routine Encounter for supervision of normal first in first trimester Obesity (BMI 30-39.9) 05/02/2023 10:26 AM EST Health Maintenance Due Date Last Done Comments [...] Encounter for supervision of normal first in first trimester Supervision of normal first Obesity (BMI 30-39.9) Obesity, unspecified documented in this encounter
--- OUTSIDE RECORDS SUMMARY | 2023-10-21 08:21 | External Medical Summary | Summary of Care ---
Author Name Unknown Organization [facility] Address [address] [facility] [address] Phone [phone] Care Team Providers Care Formula Technician Name Role Phone Unavailable Primary Care Provider Unavailabl e Reason for Visit * Reason Comments Colposcopy Encounter Details Date Type Department Care Team (Late st Contact Info) Description 05/27/2023 9:00 AM EST Office Visit Gynecology/Obstetric s [facility] [address] [place] [address] BackerRadha CRNP [address] [place] [address] ASCUS with positive high risk HPV cervical* Allergies Active Allergy Reactions Criticality Noted Date Comments Chocolate Hives 01/03/2021 Diclofenac Hives Low 11/14/2020 Ibuprofen Hives 01/03/2021 Penicillins 10/20/2001 rash documented as of this encounter (statuses as of 05/27/2023) Medications Medication Sig Dispensed Refills Start Date End Date Status 28-0.8 MG Oral Tablet Take by mouth. 0 Active documented as of this encounter (statuses as of 05/27/2023) Active Problems Problem Noted Date Diagnosed Date Rh negative status during 04/07/2023 Rubella non-immune status, antepartum 04/07/2023 Overview: MMR vaccination Normal , first 04/04/2023 Obesity (BMI 30-39.9) 04/04/2023 Overview: Pregravid BMI 30.46. Early glucola advised. Estimated Date of Delivery Comme nts Yes 11/10/2023 Based on last me nstrual period of 02/03/2023 (Exact Date) documented as of this encounter (statuses as of 05/27/2023) Immunizations No known immunizationsdocumented as of this [...] money to get more. Never true 03/21/2023 [place] Depression Scale Answer Date Recorded [place] Depression Scale Total 3 04/04/2023 The thought [...] Sign Reading Time Taken Comments Blood Pressure 112/76 05/27/2023 8:59 AM EST Pulse - - Temperature - - Respiratory Rate - - Oxygen Saturation - - Inhaled Oxygen Concentration - - Weight 86.2 kg (190 lb) 05/27/2023 8:59 AM EST Height 167.6 cm (5' 6") 05/27/2023 8:59 AM EST Body Mass Index 30.67 05/27/2023 8:59 AM EST documented in this encounter Patient Instructions * Patient Instructions* Radha Pinzon CRNP - 05/27/2023 9:01 AM EST Post colposcopy instructions: You can expect a coffee ground discharge or light bleeding for about 1-2 weeks post procedure. Do not take Aspirin or aspirin-containing products ( it may increase the amount of vaginal bleedingand affect the ability to of the blood to clot). Take Tylenol or Advil for any discomfort Avoid heavy lifting, strenuous exercise, jogging, anything in the vagina ( intercourse, douching, tampons) for 7 days It is very important to keep all follow up appointments Call your health care provider if the following occurs: - Bright red vaginal bleeding- saturating a pad/hr - Foul smelling vaginal discharge - Pain - Fever of 100 degrees or greater documented in this encounter Progress Notes * Radha Pinzon CRNP - 05/27/2023 9:01 AM EST Colposcopy Procedure Kathy Berry presents for colposcopy for evaluation of recent pap showing: ASCUS +HPV. Previous pap smears: 2019 NILM +HPV BP 112/76 | Ht 1.676 m (5' 6") | Wt 86.2 kg (190 lb) | LMP 02/03/2023 (Exact Date) | BMI 30.67 kg/m | BSA 2 m Reviewed in detail procedure, risks, benefits and indications. Patient is 16w1d , has routine OB appt later this week. A ''time out'' was initiated by BRUCE Bolton.The patient was identified by name and dateof . The correct procedure, and correct site identified. Correct positioning (as applicable). There is availability of necessary equipment. Pt states she is not allergic to latex. PE: bimanual exam: Not performed. external genitalia: No lesions. vagina: No lesions. cervix: Lesion #1 Location: 3 o'clock: Appearance: [place]; Completely visualized: yes; Biopsied: yes Lesion #2 Location: 6 o'clock: Appearance: [place]; Completely visualized: no; Biopsied: yes Lesion #3 Location: 12 o'clock: Appearance: [place]; Completely visualized: yes; Biopsied: yes Transformation Zone: Seen in entirety Satisfactory Colposcopy: yes Additional Biopsies: N/A ECC: no Impression (R87.610, R87.810) ASCUS with positive high risk HPV cervical (primary encounter diagnosis) Plan: SURGICAL PATHOLOGY F/U results on any testing done. Reviewed instructions including no sex, tampons, or douching for at least 7 days. Call with severe pain, unexplained fever, bleeding that soaks a pad in <1 hr. BRUCE Bolton documented in this encounter Nursing Notes * Jocy Beatty LPN - 05/27/2023 9:03 AM EST Colposcopy. documented in this encounter Plan of Treatment Upcoming Encounters Date Type Department Care Team (Late st Contact Info) Description 05/30/2023 9:00 AM EST Office Visit Gynecology/Obstetrics [facility] [address] [place] [address] Catalina Patricia PA-C [address] [place] [address] Pending Results Name Type Priority Associated Diagnoses Date /Time SURGICAL PATHOLOGY Pathology Routine ASCUS with positive high risk HPV cervical 05/27/2023 9:28 AM EST Health Maintenance Due Date Last [...] as of this encounter Visit Diagnoses Diagnosis ASCUS with positive high risk HPV cervical- Primary documented in this encounter
--- OUTSIDE RECORDS SUMMARY | 2023-10-21 08:21 | External Medical Summary | Summary of Care ---
Author Name Unknown Organization [facility] Address [address] [facility] [address] Phone [phone] Care Team Providers Care Accountant Cost Name Role Phone Unavailable Primary Care Provider Unavailabl e Reason for Visit * Reason Comments Colposcopy Encounter Details Date Type Department Care Team (Late st Contact Info) Description 05/27/2023 9:00 AM EST Office Visit Gynecology/Obstetric s [facility] [address] [place] [address] BackerRadha CRNP [address] [place] [address] ASCUS with positive high risk HPV cervical* [...] money to get more. Never true 03/21/2023 [place] Depression Scale Answer Date Recorded [place] Depression Scale Total 3 04/04/2023 The thought [...] 05/30/2023 9:00 AM EST Office Visit Gynecology/Obstetrics [facility] [address] [place] [address] Catalina Patricia PA-C [address] [place] [address] Pending Results Name Type Priority Associated Diagnoses [...]
--- OUTSIDE RECORDS SUMMARY | 2023-10-21 08:21 | External Medical Summary | Summary of Care ---
Author Name Unknown Organization [facility] Address [address] [place] [address] Phone [phone] Care Team Providers Care Business Objects Architect Name Role Phone Unavailable Primary Care Provider Unavailabl e Reason for Visit * Reason Comments Return Visit Encounter Details Date Type Department Care Team (Late st Contact Info) Description 05/02/2023 9:45 AM EST Office Visit Gynecology/Obstetric s [facility] 132 [facility] [place] [address] Jenifer Barrett, [facility] [address] [facility] [place] [address] Normal , second trimester*; Rubella non-immune status, antepartum; Class 1 obesity; Rh negative status during in second trimester Allergies Active Allergy Reactions [...] money to get more. Never true 03/21/2023 [place] Depression Scale Answer Date Recorded [place] Depression Scale Total 3 04/04/2023 The thought [...] Sign Reading Time Taken Comments Blood Pressure 104/78 05/02/2023 9:33 AM EST Pulse - - Temperature - - Respiratory Rate - - Oxygen Saturation - - Inhaled Oxygen Concentration - - Weight 85.7 kg (189 lb) 05/02/2023 9:33 AM EST Height 167.6 cm (5' 6") 05/02/2023 9:33 AM EST Body Mass Index 30.51 05/02/2023 9:33 AM EST documented in this encounter Progress Notes * Jenifer Barrett CNM - 05/02/2023 9:51 AM EST Kathy Berry is a 28 year old female here for her routine OB appointment at 12w4d Her Estimated Date of Delivery: 11/10/23 REVIEW OF SYSTEMS: She denies movement. Denies vaginal bleeding, LOF, contractions, vision changes, and RUQ pain. Complains of headaches a few times weekly which go away with rest and hydration. Had been vomiting frequently in the first trimester but has not vomited at all this week. Ongoing nausea. Taking Vitamin B6 for nausea. Reports fatigue. Also complains of mild pain/cramping on the sides of her abdomen/pelvis. PHYSICAL EXAM: Filed Vitals: 05/02/23 0933 BP: 104/78 Weight: 85.7 kg (189 lb) Height: 1.676 m (5' 6") +FHT 150-160 bpm ASSESSMENT/PLAN: (O09.899, Z28.39) Rubella non-immune status, antepartum Plan: -Anticipate offering MMR vaccine (E66.9) Class 1 obesity Plan: -Early 1 hour glucola screen in progress today (O26.892, Z67.91) Rh negative status during in second trimester Plan: -Anticipate offering Rhogam at 28 weeks and with any episode of vaginal bleeding (Z34.92) Normal , second trimester (primary encounter diagnosis) Plan: -discussed round ligament pain and relief measures; patient to notify provider if ongoing pelvic pain -discussed OTC treatment for nausea/vomiting (Vitamin B6 and Unisom) -recommended tylenol and magnesium for headaches; patient to notify provider if no relief -encouraged adequate hydration - recommended flu vaccine; patient declined. - discussed genetic screening including Qnatal and Quadscreen. Patient is undecided and still discussing this with her partner. She will notify provider if she desires genetic screening or discuss again at her next visit. - RTO in 4 weeks Jenifer Barrett CNM * Jocy Beatty LPN - 05/02/2023 9:36 AM EST 12w4d Doing early glucola today. Denies concerns. documented in this encounter Plan of Treatment Upcoming Encounters Date Type Department Care Team (Late st Contact Info) Description 05/27/2023 9:00 AM EST Office Visit Gynecology/Obstetrics [facility] [address] [place] [address] Radha Pinzon CRNP [address] [place] [address] 05/30/2023 9:00 AM EST Office Visit Gynecology/Obstetrics [facility] [address] [place] [address] Catalina Patricia PA-C [address] [place] [address] Health Maintenance Due Date Last Done Comments [...] as of this encounter Visit Diagnoses Diagnosis Normal , second trimester- Primary Rubella non-immune status, antepartum Other specified complication, antepartum Class 1 obesity Rh negative status during in second trimester documented in this encounter
--- OUTSIDE RECORDS SUMMARY | 2023-10-21 08:21 | External Medical Summary | Summary of Care ---
Author Name Unknown Organization [facility] Address [address] [facility] [address] Phone [phone] Care Team Providers Care Garage Supervisor Name Role Phone Unavailable Primary Care Provider Unavailabl e Reason for Visit * Reason Comments Return Visit Encounter Details Date Type Department Care Team (Late st Contact Info) Description 06/27/2023 11:30 AM EST Office Visit Gynecology/Obstetri susan Beatty [address] [facility] [place] [address] Radha Pinzon CRNP [address] [place] [address] Nurse [facility] [address] [place] [address] Encounter for supervision of normal first in [...] nutrition Plans to attend [place] 06/27/2023 Tarsha Adasmon RN 06/27/2023 Rh negative status during 04/07/2023 [...] money to get more. Never true 06/14/2023 [place] Depression Scale Answer Date Recorded [place] Depression Scale Total 3 04/04/2023 The thought [...] you quit no have you seen a rn progressive care no have you seen a social media senior associate no are you receiving counselingno have you received dental care during your no are you enrolled in [facility] plans to do you receive food stamps [...] 07/25/2023 8:30 AM EDT Office Visit Gynecology/Obstetrics [facility] [address] [place] [address] Kamilla Ledezma CRNP [address] [place] [address] Nurse [facility] Return [place] [address] [place] [address] Health Maintenance Due Date Last Done Comments [...]
--- OUTSIDE RECORDS SUMMARY | 2023-10-21 08:21 | External Medical Summary | Summary of Care ---
Author Name Unknown Organization [facility] Address [address] [facility] [address] Phone [phone] Care Team Providers Care Systems Integration Manager Name Role Phone Unavailable Primary Care Provider Unavailabl e Reason for Visit * Reason Comments Return Visit Encounter Details Date Type Department Care Team (Late st Contact Info) Description 07/25/2023 8:30 AM EDT Office Visit Gynecology/Obstetri susan Beatty [address] [facility] [place] [address] Kamilla Ledezma CRNP [address] [place] [address] Nurse [facility] Return [place] [address] [place] [address] Encounter for supervision of normal first in second trimester*; Obesity (BMI 30-39.9); Rh negative, antepartum; Rubella non-immune status, antepartum; Health counseling Allergies Active Allergy Reactions Criticality Noted Date Comments Chocolate Hives 01/03/2021 Diclofenac Hives Low 11/14/2020 Ibuprofen Hives 01/03/2021 Penicillins 10/20/2001 rash documented as of this encounter (statuses as of 07/25/2023) Medications Medication Sig Dispensed Refills Start Date End Date Status Plus 27-1 MG Oral TabletIndications:Enc ounter for supervision of normal first in second trimester Take 1 Tablet by mouth in the morning. 100 Tablet 3 06/02/2023 Active documented as of this encounter (statuses as of 07/25/2023) Active Problems Problem Noted Date Diagnosed Date [...] as of this encounter (statuses as of 07/25/2023) Immunizations No known immunizationsdocumented as of this [...] money to get more. Never true 06/14/2023 [place] Depression Scale Answer Date Recorded [place] Depression Scale Total 3 04/04/2023 The thought [...] Sign Reading Time Taken Comments Blood Pressure 108/70 07/25/2023 8:33 AM EDT Pulse - - Temperature - - Respiratory Rate - - Oxygen Saturation - - Inhaled Oxygen Concentration - - Weight 90.4 kg (199 lb 6.4 oz) 07/25/2023 8:33 A M EDT Height - - Body Mass Index 32.18 05/30/2023 8:52 AM EST documented in this encounter Progress Notes * Kamilla Ledezma CRNP - 07/25/2023 9:38 AM EDT 24w4d No concerns. Baby is active. No bleeding, no contractions. Mild nausea. Glucola with next visit. BRUCE Romero documented in this encounter Nursing Notes * Maria Guadalupe Patterson RN - 07/25/2023 9:25 AM EDT Patient seen by [facility]. Patient denies any questions or concerns. * Magaly Crowell LPN - 07/25/2023 8:34 AM EDT 24w4d Denies vaginal bleeding/rom + movement No new concerns documented in this encounter Plan of Treatment Upcoming Encounters Date Type Department Care Team (Late st Contact Info) Description 08/22/2023 10:00 AM EDT [facility] [address] [place] [phone] Nohemy Beatty Luna [address] [place] [address] 08/22/2023 10:15 AM EDT Office Visit Gynecology/Obstetrics [facility] [address] [place] [address] Kamilla Ledezma CRNP [address] [place] [address] Nurse [facility] Return Luna [address] [place] [address] Scheduled Orders Name Type Priority Associated Diagnoses Orde r Schedule 50-G GESTATIONAL GLUCOSE, 1 HOUR Lab Routine Encounter for supervision of normal first in second trimester Expected: 08/08/2023 (Approximate), Expires: 07/24/2024 SYPHILIS ANTIBODY SCREEN WITH REFLEX TO RPR Lab Routine Encounter for supervision of normal first in second trimester Expected: 08/08/2023 (Approximate), Expires: 07/24/2024 CBC WITH WBC DIFFERENTIAL AND ANEMIA REFLEX WORKUP Lab Routine Encounter for supervision of normal first in second trimester Expected: 08/08/2023 (Approximate), Expires: 07/24/2024 TYPE AND SCREEN Lab Routine Encounter for supervision of normal first in second trimester Expected: 08/08/2023 (Approximate), Expires: 08/24/2024 Health Maintenance Due Date Last Done Comments DTaP,Tdap,and Td Vaccines (6 - Tdap) 2006 05/10/1999, 11/05/1996, 1995, Additional history exists Depression Screening 11/22/2020 11/23/2019 COVID-19 Vaccine ( season) 2022 Influenza Vaccine (FLU shot) (#1) [...] first Obesity (BMI 30-39.9) Obesity, unspecified Rh negative, antepartum Rhesus isoimmunization affecting management of mother, antepartum condition Rubella non-immune status, antepartum Other specified complication, antepartum Health counseling Other specified counseling documented in this encounter
--- OUTSIDE RECORDS SUMMARY | 2023-10-21 08:21 | External Medical Summary ---
Author Name Unknown Address Unknown Organization [id number]:[facility] [place] [address] [place] [id number] Laboratory Report Ordering Provider Test Date Status CHRISTEL LYNN 05/30/2023 09:30:26 Final Observation Date Value Abnormality Reference (Units) Status Bacteria identified in Specimen by Culture 05/30/2023 09:30:26 No significant growth Final Test: Culture, Urine, Quant itative
Specimen Source: Urine, Clean Catch
Specimen Type: Urine
Specimen Date: 05/30/2023 9:30 AM
Result Date: 05/31/2023 9:57 AM
Result Status: Final result
Resulting Lab: [facility] [place]
[address]
[place] [address]

CULTURE

No significant growth

null Performing Location [facility] [place] [address] [place] [id number]
--- OUTSIDE RECORDS SUMMARY | 2023-10-21 08:21 | External Medical Summary ---
Author Name Unknown Address Unknown Organization [id number]:[facility] [place] - [address] [place] [id number] Laboratory Report Ordering Provider Test Date Status BOY KEANELEONARDA 08/22/2023 11:02:38 Final Observation Date Value Abnormality Reference (Units ) Status Iron 08/22/2023 11:02:38 62 33-151 (ug/dL) Final Iron-binding capacity 08/22/2023 11:02:38 438 Above high normal 250-425 (ug/dL) Final Transferrin Sat % 08/22/2023 11:02:38 14 Below low normal 15-55 (%) Final Performing Location [facility]ORY [facility] [place] - [address] [place] [address]
--- OUTSIDE RECORDS SUMMARY | 2023-10-21 08:22 | External Medical Summary ---
Author Name Unknown Address Unknown Organization [id number][facility] [address] [place] [address] Laboratory Report Ordering Provider Test Date Status CHRISTEL LYNN 05/02/2023 10:26:43 Final Observation Date Value Abnormality Reference (Units ) Status Glucose [Moles/volume] in Serum or Plasma --1 hour post 50 g glucose PO 05/02/2023 10:26:43 80 70-129 (mg/dL) Final Performing Location [facility]ORY [facility] - [address] [place] [address]
[2023-10-21] MEDS ORDERED: LIDOCAINE 1% LOCAL 20 ML VIAL INFIL PRN (09:20)
[2023-10-21] MEDS ORDERED: OXYTOCIN 30 UNITS/NSS 30 UNITS/500 ML BAG IV PRN (09:20)
[2023-10-21] MEDS ORDERED: Nursing to Pharmacy Communication SCH (09:45)
[2023-10-21] MEDS: miSOPROStoL 50 MCG TAB PO ONE (09:49)
--- NOTE | 2023-10-21 09:49 | Obstetrical Progress Note ---
Date of Service October 21, 2023 Assessment & Plan (1) Gestational hypertension: Plan: Met pt and spouse Reviewed PNC GHTN on no Meds FHR; CAT1 Ctx; none VE ; FT/high post EFW; 7-8 Lbs Plan Cytotec Q 4 Admission and Anticipated Discharge Date Admission Date: October 21, 2023 Results & Data Vital Signs (Past 12 Hours) Vital Signs Temp Pulse Resp BP 10/21/23 07:56 36.9 C 18 10/21/23 07:54 93 H 144/92 H
[2023-10-21 09:56] LABS: Hematocrit (blood only) 34.2 % (37.0-47.0); Hemoglobin 11.3 g/dl (12.0-16.0); Mean Corpuscular Hemoglobin 28.2 pg (25.0-34.0); Mean Corpuscular Volume 85.3 fL (80.0-100.0); Mean Platelet Volume 11.2 fL (9.4-12.4); Platelet Count 199 K/uL (130-400); RDW Coefficient of Variation 13.5 % (11.5-14.5); Red Blood Count 4.01 M/uL (4.20-5.40); White Blood Count 12.19 K/ul (4.8-10.8)
[2023-10-21] MEDS ORDERED: miSOPROStoL 50 MCG TAB PO SCH (12:00)
[2023-10-21] MEDS: miSOPROStoL 50 MCG TAB PO SCH (14:46)
[2023-10-21 20:10] LABS: Albumin Globulin Ratio 1.1 (0.9-2); Albumin Level 3.2 gm/dl (3.4-5.0); Bilirubin,Total 0.4 mg/dl (0.2-1.0); Calcium 8.5 mg/dl (8.6-10.3); Creatinine Clr Calc Pharmacy 168.4 ml/min; Est GFR (Non-African American) 123.4 ml/min; Globulin 2.8 gm/dl (2.5-4.0); Potassium 3.5 mmol/L (3.5-5.1)
[2023-10-21] MEDS: DINOPROSTONE 10 MG INSERT PV ONE (21:40)
--- NOTE | 2023-10-21 22:23 | Obstetrical Progress Note ---
Date of Service October 21, 2023 Assessment & Plan (1) Gestational hypertension: Plan: Pt doing well Induction for GHTN Received Cytotec #1 FHR; CAT1 Ctx; Irregular VE; ft/post Cervidil placed Admission and Anticipated Discharge Date Admission Date: October 21, 2023 Results & Data Vital Signs (Past 12 Hours) Vital Signs Temp Pulse Resp BP 10/21/23 19:04 67 10/21/23 19:04 154/91 H 10/21/23 19:00 20 10/21/23 19:00 36.9 C 20 10/21/23 17:41 36.8 C 70 148/96 H 10/21/23 17:41 149/93 H 10/21/23 17:38 62 10/21/23 17:38 148/96 H 10/21/23 16:20 18 10/21/23 16:20 18 10/21/23 16:20 64 10/21/23 16:20 142/95 H 10/21/23 14:43 20 10/21/23 14:43 36.5 C 20 10/21/23 14:43 65 10/21/23 14:43 136/83 10/21/23 11:49 18 10/21/23 11:49 36.8 C 18 10/21/23 11:49 69 10/21/23 11:49 150/79 H
--- NOTE | 2023-10-22 09:37 | Obstetrical Progress Note ---
Date of Service October 22, 2023 Assessment & Plan Admission and Anticipated Discharge Date Admission Date: October 21, 2023 Subjective Patient is seen and examined, She is a 28-year-old G1, P0 at 37 weeks and 3 days of gestation was admitted yesterday by Dr. Ngo for induction of labor for gestational hypertension. She denies headaches, change in her vision, nausea vomiting, contractions, leakage of fluid, vaginal bleeding. She reports good movements. her labs including platelets and LFTs were within normal limits and she has not required antihypertensive medications. her has been uncomplicated except above and GBS positive, allergic to penicillin. She denies any other medical problems, surgeries, no history of STDs, no smoking, alcohol or drug use. Vaginal exam: cervidil is removed, cervix is still closed, soft about 30% effaced, -4 posterior. Plan to continue with cervical ripening with oral Cytotec since patient did not tolerate exam well, Discussed what to expect, all questions were answered. Results & Data Vital Signs (Past 12 Hours) Vital Signs Temp Pulse Resp BP 10/22/23 08:39 36.5 C 83 18 143/82 H 10/22/23 02:30 36.9 C 68 18 130/79 10/22/23 02:29 65 140/94 10/21/23 23:16 18 10/21/23 23:16 36.8 C 18 10/21/23 23:16 67 10/21/23 23:16 137/75
[2023-10-22] MEDS: FLUCONAZOLE 50 MG TAB PO ONE (11:27)
[2023-10-22] MEDS: LACTATED RINGER'S 1,000 ML IV PRN (14:11)
[2023-10-23] MEDS: BUTORPHANOL TARTRATE 2 MG/ML VIAL IV PRN (00:44)
--- NOTE | 2023-10-23 00:44 | Obstetrical Progress Note ---
Date of Service October 23, 2023 Assessment & Plan Admission and Anticipated Discharge Date Admission Date: October 21, 2023 Subjective Patient is reevaluated She has received 3 doses of PO Cytotec by now Started to feel contractions for the last hour They are more painful, / No LOF/VB +FM's VE; uncomfortable with VE, cervix 1 cm/ soft, 50@/ -3, posterior, white curdy d/c, suggesting vaginal Ashley, recevied PO Diflucan yesterday Discussed findings and option of mechanical dilatation with Hickman balloon. She agrees with plan but desires pain meds Plan to monitor, Stadol IV for pain then speculum exam for Hickman balloon insertion. Results & Data Vital Signs (Past 12 Hours) Vital Signs Temp Pulse Resp BP 10/22/23 23:11 36.8 C 10/22/23 23:10 68 146/90 H 10/22/23 19:00 36.7 C 10/22/23 18:44 70 137/91 10/22/23 16:31 37.2 C 73 16 130/92
--- NOTE | 2023-10-23 01:14 | Procedure Note ---
Procedure Note Date of Service October 23, 2023 Note Patient is placed in dorsal lithotomy position. Spekulum is placed in vagina and the cervix was visualized. It was cleaned with Betadine and then Hickman catheter tip was inserted into to os, inflated with 40 ml sterile water, and attached to medial thigh. She tolerated the procedure well. FHR categ I [place] with contractions q 3-4 min Plan to start Vancomycin for GBS, augment contractions with Oxytocin as needed, epidural for pain. Coding
[2023-10-23] MEDS: VANCOMYCIN HCL 1,000 MG in SODIUM CHLORIDE 0.9% 250 ML IV PRN (01:23)
[2023-10-23] MEDS: OXYTOCIN 30 UNITS/NSS 30 UNITS/500 ML BAG IV PRN (06:00)
[2023-10-23] MEDS: LACTATED RINGER'S 1,000 ML IV SCH (10:21)
--- NOTE | 2023-10-23 12:09 | Anesthesiology Consultation ---
Date of Service October 23, 2023 Assessment & Plan (1) Encounter for pre-operative examination: Chart Review Chart Review: Patient NOT seen in Pre Admission Testing and Acceptable Risk for Labor Epidural Consults Requested none History Height/Weight Height: 5 ft 6 in Weight: 105.233 kg Allergies Allergy/AdvReac Type Severity Reaction Status Date / Time penicillin G Allergy Anaphylaxis Verified 10/21/23 08:20 Medications Home Medications Medication Instructions Recorded Confirmed Last Taken vits [id number] fum 1 tab PO DAILY 10/21/23 10/21/23 Unknown 27 mg iron-folic acid 800 mcg tablet ( Vitamin) Active Medications Generic Name Dose Route Start Last Admin Trade Name Freq PRN Reason Stop Dose Admin Butorphanol Tartrate 1 mg 10/22/23 10:50 10/23/23 00:44 Butorphanol Tartrate 2 Mg/Ml Vial IV 11/21/23 10:49 1 mg Q3H PRN Administration Pain Protocol Vancomycin HCl 1,000 mg/ 270 mls @ 200 mls/hr 10/21/23 20:20 10/23/23 02:44 Sodium Chloride IV 10/31/23 20:19 Infused Q12H PRN Infusion GBS(+) Until Delivery Oxytocin 30 units in 500 mls @ 14 mls/hr 10/23/23 01:14 10/23/23 09:45 Pitocin 30 Units/Nss IV 10/25/23 01:13 0.84 units/hr .Q24H PRN 14 mls/hr Labor Induction/Augmentation Titration Protocol 0.84 UNITS/HR Lactated Ringer's 1,000 mls @ 125 mls/hr 10/23/23 10:00 10/23/23 10:21 Lr IV 11/22/23 09:59 125 mls/hr .Q8H LISSETTE Administration Past Medical History Medical History No known health problems Social History Smoking Status: Never smoker Hx Alcohol Use: No Hx Substance Use: No substance use type: does not use Physical Exam Vital Signs Last Vital Signs Temp 98.4 F 10/23/23 07:20 Pulse 67 10/23/23 12:05 Resp 20 10/23/23 07:20 BP 170/96 H 10/23/23 12:05 Testing Laboratory Results 10/21/23 09:31 10/21/23 19:35 Blood Type O Negative 10/21/23 09:31 Antibody Screen NEGATIVE 10/21/23 09:31
[2023-10-23] MEDS ORDERED: ePHEDrine sulfate 50 MG/ML AMP IV PRN (12:10)
[2023-10-23] MEDS ORDERED: SODIUM CHLORIDE 0.9% PF INJ 10 ML VIAL EPI PRN (12:10)
[2023-10-23] MEDS ORDERED: NALOXONE HCL 1 MG in SODIUM CHLORIDE 0.9% 1,000 ML IV PRN (12:10)
[2023-10-23] MEDS ORDERED: NALOXONE HCL 0.4 MG/1 ML VIAL/CARP IV PRN (12:10)
[2023-10-23] MEDS ORDERED: NALBUPHINE HCL 5 MG in SYRINGE 0 ML IV PRN (12:10)
[2023-10-23] MEDS ORDERED: fentANYL 2 MCG/ML BUPIVacaine 0.125%-NSS 100ML BAG EPI PRN (12:10)
[2023-10-23] MEDS ORDERED: LIDOCAINE 2% MPF LOCAL 5 ML VIAL EPI PRN (12:10)
[2023-10-23] MEDS ORDERED: ROPIVACAINE 0.5% PF 5 MG/ML 20 ML VIAL EPI PRN (12:10)
[2023-10-23] MEDS ORDERED: diphenhydrAMINE 50 MG/ML VIAL IV PRN (12:10)
[2023-10-23] MEDS: BUPIVACAINE 0.25% PF 30 ML VIAL ONE (12:27)
[2023-10-23] MEDS: LIDOCAINE 2%/EPINEPHRINE 1:200,000 20 ML PF ONE (12:27)
[2023-10-23] MEDS: fentANYL 2 MCG/ML BUPIVacaine 0.125%-NSS 100ML BAG ONE (12:29)
[2023-10-23] MEDS: fentaNYL citrate PF 100 MCG/2 ML VIAL ONE (12:31)
[2023-10-23] MEDS: SODIUM CHLORIDE 0.9% PF INJ 10 ML VIAL ONE (12:31)
[2023-10-23] MEDS: ePHEDrine sulfate 50 MG/ML AMP ONE (12:31)
[2023-10-23] MEDS: BUPIVACAINE 0.25% PF 30 ML VIAL EPI STA (12:33)
[2023-10-23] MEDS: fentaNYL citrate PF 100 MCG/2 ML VIAL EPI STA (12:33)
[2023-10-23] MEDS: SODIUM CHLORIDE 0.9% PF INJ 10 ML VIAL EPI STA (12:33)
[2023-10-23] MEDS: LIDOCAINE 2%/EPINEPHRINE 1:200,000 20 ML PF EPI STA (12:33)
[2023-10-23] MEDS ORDERED: Nursing to Pharmacy Communication SCH (15:00)
[2023-10-23] MEDS ORDERED: NURSING L&D Epidural Breakthrough Pain Update ONE (16:26)
[2023-10-23] MEDS: fentaNYL citrate PF 100 MCG/2 ML VIAL EPI PRN (17:24)
[2023-10-23] MEDS: BUPIVACAINE 0.25% PF 30 ML VIAL EPI PRN (17:24)
--- NOTE | 2023-10-23 17:25 | Anesthesia Procedure Note ---
Date of Service October 23, 2023 Anesthesia Epidural Re-Dose Vital Signs Temp Pulse Resp BP Pulse Ox 98.4 F 61 20 154/78 H 100 10/23/23 11:32 10/23/23 17:21 10/23/23 15:01 10/23/23 17:19 10/23/23 17:21 Notes Pain Intensity: 4 Dilatation (cm): 6.5 Effacement (%): 100 Called by nursing to evaluate epidural as the patient is having increased pain. The epidural was re-dosed with the following medications after negative aspiration of the epidural catheter for CSF/HEME. 3mL of 0.25% Bupivacaine and 75 mcg fentanyl After Epidural Re-Dose Mental Status: alert / awake / arousable Pain: improving with treatment Airway Patency, RR, SpO2: stable & adequate BP & HR: stable & adequate
[2023-10-23] MEDS: METHYLERGONOVINE MALEATE 0.2 MG/ML AMP IM ONE (20:15)
[2023-10-23] MEDS ORDERED: bisacodyL 10 MG SUPP PR PRN (20:32)
[2023-10-23] MEDS ORDERED: ACETAMINOPHEN W/CODEINE #3 1 TAB PO PRN (20:32)
[2023-10-23] MEDS ORDERED: BENZOCAINE 20% SPRY 85 APPLN/85 GM CAN EXT PRN (20:32)
[2023-10-23] MEDS ORDERED: HYDROCORTISONE ACETATE 25 MG SUPP PR PRN (20:32)
[2023-10-23] MEDS ORDERED: OXYTOCIN 30 UNITS/NSS 30 UNITS/500 ML BAG IV PRN (20:32)
[2023-10-23] MEDS ORDERED: oxyCODONE/ACETAMINOPHEN 5mg/325mg TAB PO PRN (20:32)
--- NOTE | 2023-10-23 20:39 | Delivery Summary ---
Vaginal Delivery Summary Date of Service October 23, 2023 Vaginal Delivery Summary Patient was followed for care and delivery. Patient was well dated with a first trimester ultrasound. course was complicated by hypertension. She was brought in for induction at 37+ weeks gestation. Induced with a series of Hickman balloon Cytotec and Pitocin. Eventually she delivered at 37 weeks and 3 days. At about 4 cm membranes were ruptured surgically. Fluid was clear. Contractions augmented with IV Pitocin. At about 5 to 6 cm dilatation patient requested and received epidural for pain control. Had came down nicely and she delivered a live male infant via direct occiput anterior position over an intact perineum. was suctioned through the mouth and the nose. Cord was allowed to pulse for 1 full minute. Cord was clamped cut by the father. Cord blood was taken. With IV Pitocin running the placenta was removed intact. IM Methergine was also used to contract the uterus. Inspection of the vagina revealed a left-sided sulcus laceration which was bleeding. Crescent of the laceration was identified. The laceration was repaired with a running 2- 0 Vicryl. Out to beyond the hymenal ring. Deep sutures used approximate the bulbocavernosus muscle and also the skin edges. Quantitative blood loss was 126 mL.
--- NOTE | 2023-10-23 20:44 | Anesthesia Procedure Note ---
Date of Service October 23, 2023 Anesthesia Post Epidural Note Vital Signs Vital Signs: Temp Pulse Resp BP Pulse Ox 98.2 F 85 18 154/70 H 100 10/23/23 19:00 10/23/23 20:41 10/23/23 18:31 10/23/23 20:36 10/23/23 20:41 Pain Intensity Bilateral Perineal: Pain Intensity: 7 Notes Mental Status: alert / awake / arousable and participated in evaluation Nausea / Vomiting: adequately controlled Pain: adequately controlled Airway Patency, RR, SpO2: stable & adequate BP & HR: stable & adequate Hydration State: stable & adequate Neuraxial Anesthesia: was administered and sensory block is resolving Anesthetic Complications: no major complications apparent and Pt Satisfied with anesthetic care Epidural: Removed without complications and With tip intact
[2023-10-23] MEDS: DOCUSATE SODIUM 100 MG CAP PO SCH (22:10)
[2023-10-23] MEDS: METHYLERGONOVINE MALEATE 0.2 MG/ML AMP ONE (22:13)
[2023-10-23] MEDS: DIPHTHER/TETAN/PERTUS Vaccine (Tdap, Adol/Adult) 0.5mL IM ONE (22:13)
[2023-10-23] MEDS: IBUPROFEN 600 MG TAB PO PRN (23:34)
[2023-10-24] MEDS: ACETAMINOPHEN 325 MG TAB PO PRN (00:30)
[2023-10-24 06:28] LABS: Hematocrit (blood only) 31.9 % (37.0-47.0); Mean Corpuscular Hemoglobin 28.9 pg (25.0-34.0); Mean Corpuscular Hgb Conc 34.5 g/dL (32.0-36.0); Mean Corpuscular Volume 83.9 fL (80.0-100.0); Mean Platelet Volume 11.2 fL (9.4-12.4); Platelet Count 197 K/uL (130-400); RDW Coefficient of Variation 13.6 % (11.5-14.5); RDW Standard Deviation 41.7 fL (36.4-46.3); White Blood Count 17.38 K/ul (4.8-10.8)
[2023-10-24] MEDS: PRENATAL VITAMIN 1 TAB PO SCH (09:49)
--- NOTE | 2023-10-24 10:06 | Obstetrical Progress Note ---
Date of Service October 24, 2023 Assessment & Plan Admission and Anticipated Discharge Date Admission Date: October 21, 2023 Subjective Patient is seen and examined. She feels well, no complaints. Ambulating without dizziness Voiding without difficulty Tolerating regular diet with out N&V Bleeding is minimal No TARANGO/ change in vision/ fever/ chills/ CP/ SOB/ N&V/ Leg pain Breast feeding without problems Vital Signs Height Weight Body Mass Index Blood Pressure Blood Pressure Position Temperature Temperature Source 5 ft 6 in 105.233 kg 37.4 113/78 Semi-fowlers 37.0 C Oral 10/23/23 12:14 10/23/23 12:14 10/21/23 07:56 10/24/23 04:10 10/24/23 04:10 10/24/23 04:10 10/24/23 04:10 Pulse Rate Respiratory Rate Pulse Oximetry 81 18 98 10/24/23 04:10 10/24/23 04:10 10/23/23 23:08 Lab Results 10/21/23 10/21/23 10/24/23 Range/Units 09:31 19:35 06:02 WBC 12.19 H 17.38 H (4.8-10.8) K/ul RBC 4.01 L 3.80 L (4.20-5.40) M/uL Hgb 11.3 L 11.0 L (12.0-16.0) g/dl Hct 34.2 L 31.9 L (37.0-47.0) % MCV 85.3 83.9 (80.0-100.0) fL MCH 28.2 28.9 (25.0-34.0) pg MCHC 33.0 34.5 (32.0-36.0) g/dL RDW Std Deviation 42.0 41.7 (36.4-46.3) fL RDW Coeff of Melani 13.5 13.6 (11.5-14.5) % Plt Count 199 197 (130-400) K/uL MPV 11.2 11.2 (9.4-12.4) fL Sodium 130 L (136-145) mmol/L Potassium 3.5 (3.5-5.1) mmol/L Chloride 100 (98-107) mmol/L Carbon Dioxide 21 (21-32) mmol/L Anion Gap 9 (3-11) BUN 11 (6-23) mg/dl Creatinine 0.61 (0.6-1.2) mg/dl Est Cr Clr Drug Dosing 168.4 ml/min Est GFR ( Amer) 143.0 ml/min Est GFR (Non-Af Amer) 123.4 ml/min BUN/Creatinine Ratio 18.0 (10-20) Glucose 72 (70-99(Fasting)) mg/dl Calcium 8.5 L (8.6-10.3) mg/dl Total Bilirubin 0.4 (0.2-1.0) mg/dl AST 14 (13-39) U/L ALT 10 (7-52) U/L Alkaline Phosphatase 90 (34-104) U/L Total Protein 6.0 (6.0-8.3) gm/dl Albumin 3.2 L (3.4-5.0) gm/dl Globulin 2.8 (2.5-4.0) gm/dl Albumin/Globulin Ratio 1.1 (0.9-2) Blood Type O Negative Cancelled Antibody Screen NEGATIVE Cancelled Screen Cancelled PE: General: Alert, orientedx3, NAD Abd: soft, NT, fundus firm, below Umbilicus Perineum intact, Lochia rubra minimal Ext; NT, no edema AP: 28 yo s/p , ppd# 1 VSS Afebrile doing well Continue routine care All questions were answered D/C home tomorrow Results & Data Vital Signs (Past 12 Hours) Vital Signs Temp Pulse Pulse Resp BP BP Pulse Ox 10/24/23 04:10 37.0 C 81 18 113/78 10/23/23 23:08 36.8 C 89 18 147/97 H 98 10/23/23 22:40 95 H 139/83 10/23/23 22:35 18 10/23/23 22:25 105 H 137/84 10/23/23 22:17 18 10/23/23 22:10 89 135/73 O2 Del Method 10/24/23 04:10 Room Air 10/23/23 23:08 Room Air 10/23/23 22:40 10/23/23 22:35 10/23/23 22:25 10/23/23 22:17 10/23/23 22:10
[2023-10-24] MEDS: MEASLES, MUMPS & RUBELLA VIRUS VACCINE (MMR) 0.5ML VIAL ONE (18:22)
[2023-10-24] MEDS: bisacodyL 5 MG TABEC PO SCH (20:37)
[2023-10-24] MEDS: LABETALOL HCL 100 MG TAB PO SCH (23:30)
[2023-10-25 06:36] LABS: Basophils # (auto) 0.05 K/uL (0.00-0.20); Basophils % (auto) 0.4 %; Eosinophils # (auto) 0.11 K/uL (0.00-0.50); Eosinophils % (auto) 0.8 %; Hematocrit (blood only) 27.7 % (37.0-47.0); Hemoglobin 9.1 g/dl (12.0-16.0); Immature Granulocytes # (auto) 0.12 K/uL (0.01-0.20); Immature Granulocytes % (auto) 0.9 %; Lymphocytes # (auto) 3.37 K/uL (1.20-3.40); Lymphocytes % (auto) 24.9 %; Mean Corpuscular Hemoglobin 28.4 pg (25.0-34.0); Mean Corpuscular Hgb Conc 32.9 g/dL (32.0-36.0); Mean Corpuscular Volume 86.6 fL (80.0-100.0); Mean Platelet Volume 10.9 fL (9.4-12.4); Monocytes # (auto) 0.78 K/uL (0.11-0.59); Monocytes % (auto) 5.8 %; Neutrophils # (auto) 9.12 K/uL (1.40-6.50); Neutrophils % (auto) 67.2 %; Platelet Count 191 K/uL (130-400); RDW Coefficient of Variation 13.8 % (11.5-14.5); RDW Standard Deviation 43.7 fL (36.4-46.3); White Blood Count 13.55 K/ul (4.8-10.8)
--- NOTE | 2023-10-25 11:27 | Obstetrical Progress Note ---
Date of Service October 25, 2023 Assessment & Plan Admission and Anticipated Discharge Date Admission Date: October 21, 2023 Subjective Patient is seen and examined. She feels well, no complaints. Ambulating without dizziness Voiding without difficulty Tolerating regular diet with out N&V Bleeding is minimal No TARANGO/ Change in vision/ fever/ chills/ CP/ SOB/ N&V/ Leg pain Breast feeding without problems Vital Signs Temp Pulse Resp BP Pulse Ox O2 Del Method 10/25/23 07:50 36.7 C 73 15 138/90 10/25/23 03:27 70 125/83 10/25/23 00:30 76 16 135/89 10/24/23 22:51 36.8 C 68 18 142/94 H 99 Room Air 10/24/23 19:29 36.7 C 72 18 145/85 H 100 Room Air 10/24/23 15:45 36.5 C 77 16 140/98 99 Room Air 10/24/23 13:00 36.7 C 76 16 133/97 99 Room Air Lab Results 10/21/23 10/21/23 10/24/23 Range/Units 09:31 19:35 06:02 WBC 12.19 H 17.38 H (4.8-10.8) K/ul RBC 4.01 L 3.80 L (4.20-5.40) M/uL Hgb 11.3 L 11.0 L (12.0-16.0) g/dl Hct 34.2 L 31.9 L (37.0-47.0) % MCV 85.3 83.9 (80.0-100.0) fL MCH 28.2 28.9 (25.0-34.0) pg MCHC 33.0 34.5 (32.0-36.0) g/dL RDW Std Deviation 42.0 41.7 (36.4-46.3) fL RDW Coeff of Melani 13.5 13.6 (11.5-14.5) % Plt Count 199 197 (130-400) K/uL MPV 11.2 11.2 (9.4-12.4) fL Immature Gran % (Auto) % Neut % (Auto) % Lymph % (Auto) % [place] % (Auto) % Eos % (Auto) % Baso % (Auto) % Neut # (Auto) (1.40-6.50) K/uL Lymph # (Auto) (1.20-3.40) K/uL [place] # (Auto) (0.11-0.59) K/uL Eos # (Auto) (0.00-0.50) K/uL Baso # (Auto) (0.00-0.20) K/uL Immature Gran # (Auto) (0.01-0.20) K/uL Sodium 130 L (136-145) mmol/L Potassium 3.5 (3.5-5.1) mmol/L Chloride 100 (98-107) mmol/L Carbon Dioxide 21 (21-32) mmol/L Anion Gap 9 (3-11) BUN 11 (6-23) mg/dl Creatinine 0.61 (0.6-1.2) mg/dl Est Cr Clr Drug Dosing 168.4 ml/min Est GFR ( Amer) 143.0 ml/min Est GFR (Non-Af Amer) 123.4 ml/min BUN/Creatinine Ratio 18.0 (10-20) Glucose 72 (70-99(Fasting)) mg/dl Calcium 8.5 L (8.6-10.3) mg/dl Total Bilirubin 0.4 (0.2-1.0) mg/dl AST 14 (13-39) U/L ALT 10 (7-52) U/L Alkaline Phosphatase 90 (34-104) U/L Total Protein 6.0 (6.0-8.3) gm/dl Albumin 3.2 L (3.4-5.0) gm/dl Globulin 2.8 (2.5-4.0) gm/dl Albumin/Globulin Ratio 1.1 (0.9-2) Blood Type O Negative Cancelled Antibody Screen NEGATIVE Cancelled Screen Cancelled 10/25/23 Range/Units 06:14 WBC 13.55 H (4.8-10.8) K/ul RBC 3.20 L (4.20-5.40) M/uL Hgb 9.1 L (12.0-16.0) g/dl Hct 27.7 L (37.0-47.0) % MCV 86.6 (80.0-100.0) fL MCH 28.4 (25.0-34.0) pg MCHC 32.9 (32.0-36.0) g/dL RDW Std Deviation 43.7 (36.4-46.3) fL RDW Coeff of Melani 13.8 (11.5-14.5) % Plt Count 191 (130-400) K/uL MPV 10.9 (9.4-12.4) fL Immature Gran % (Auto) 0.9 % Neut % (Auto) 67.2 % Lymph % (Auto) 24.9 % [place] % (Auto) 5.8 % Eos % (Auto) 0.8 % Baso % (Auto) 0.4 % Neut # (Auto) 9.12 H (1.40-6.50) K/uL Lymph # (Auto) 3.37 (1.20-3.40) K/uL [place] # (Auto) 0.78 H (0.11-0.59) K/uL Eos # (Auto) 0.11 (0.00-0.50) K/uL Baso # (Auto) 0.05 (0.00-0.20) K/uL Immature Gran # (Auto) 0.12 (0.01-0.20) K/uL Sodium (136-145) mmol/L Potassium (3.5-5.1) mmol/L Chloride (98-107) mmol/L Carbon Dioxide (21-32) mmol/L Anion Gap (3-11) BUN (6-23) mg/dl Creatinine (0.6-1.2) mg/dl Est Cr Clr Drug Dosing ml/min Est GFR ( Amer) ml/min Est GFR (Non-Af Amer) ml/min BUN/Creatinine Ratio (10-20) Glucose (70-99(Fasting)) mg/dl Calcium (8.6-10.3) mg/dl Total Bilirubin (0.2-1.0) mg/dl AST (13-39) U/L ALT (7-52) U/L Alkaline Phosphatase (34-104) U/L Total Protein (6.0-8.3) gm/dl Albumin (3.4-5.0) gm/dl Globulin (2.5-4.0) gm/dl Albumin/Globulin Ratio (0.9-2) Blood Type Antibody Screen Screen PE: General: Alert, orientedx3, NAD Abd: soft, NT, fundus firm, below Umbilicus Perineum intact, Lochia rubra minimal Ext; NT, no edema AP: 28 yo s/p , ppd# 2, s/p IOL for GHTN, VSS Afebrile doing well On Labetalol Continue routine care All questions were answered D/C home , f/u in office Results & Data Vital Signs (Past 12 Hours) Vital Signs Temp Pulse Resp BP 10/25/23 07:50 36.7 C 73 15 138/90 10/25/23 03:27 70 125/83 10/25/23 00:30 76 16 135/89
== END 2023-10-25 13:25 | disposition home or self-care (01) | DRG 806 ==
LOC: 4S1 07:48 → 4E2 10-23 23:34